=== PATIENT | male | born 1955 | race Caucasian/White ===

== ENCOUNTER 2018-11-10 18:52 | Emergency (ER) | payer OTHER ==
[2018-11-10] MEDS ORDERED: METHYLPREDNISOLONE 125 MG INJ ONE (19:28)
[2018-11-10] MEDS ORDERED: IBUPROFEN 400 MG TAB ONE (19:29)
[2018-11-10] MEDS ORDERED: LEVALBUTEROL 1.25 MG/3 ML NEB ONE ×2 (19:29→21:23)
[2018-11-10] MEDS ORDERED: IBUPROFEN 200 MG TAB PO ONE (19:30)
--- NOTE | 2018-11-10 19:32 | RAD REPORT ---
EXAM DESCRIPTION: RAD - Chest Pa And Lat (2 Views) - 11/10/2018 7:26 pm CLINICAL HISTORY: Cough;Dyspnea Chest pain. COMPARISON: No comparisonsNo comparisons TECHNIQUE: PA and lateral views of the chest were obtained. FINDINGS: The lungs are hyperexpanded compatible with COPD. Linear opacities in both lung bases like ly representing atelectasis. The heart is upper limit of normal in size. No fracture or aggressive mian ny process. IMPRESSION: Prominent COPD.
--- NOTE | 2018-11-10 19:47 | RAD REPORT ---
EXAM DESCRIPTION: US - Abdomen Exam Limited - 11/10/2018 7:40 pm CLINICAL HISTORY: RUQ abd pain COMPARISON: No comparisons FINDINGS: The gallbladder demonstrates no gallstones. No pericholecystic fluid or gallbladder wall t hickening. The common bile duct is normal measuring 3 mm. The liver demonstrates fatty liver. IMPRESSION: Negative gallbladder/ biliary tree findings. Fatty liver.
[2018-11-10 20:15] LABS: Absolute Lymphocytes (CBC) 1.1 K/uL (0.7-4.9); Absolute Monocytes 1.2 K/uL (0.1-1.3); Absolute Neutrophil 7.2 K/uL (1.8-8.0); Basophils % 1.1 % (0-1.3); Eosinophils % 2.9 % (0-4.4); Hematocrit 46.5 % (39.6-49.0); Lymphocytes % 11.3 % (15.3-44.8); MPV 8.5 fL (7.6-11.3); Monocytes % 12.4 % (3.3-12.3)
[2018-11-10 20:41] LABS: ALT/SGPT 37 U/L (12-78); AST/SGOT 25 U/L (15-37); Albumin 3.4 g/dL (3.4-5.0); Alkaline Phosphatase 81 U/L (45-117); BUN Blood Urea Nitrogen 12 mg/dL (7-18); Bicarbonate 26 mmol/L (21-32); Bilirubin Direct 0.1 mg/dL (0-0.2); Bilirubin Total 0.5 mg/dL (0.2-1.0); Glucose Level 109 mg/dL (74-106); Lipase 85 U/L (73-393); NT PRO-BNP 119 pg/mL (<125); Potassium 3.8 mmol/L (3.5-5.1); Protein, Total 8.2 g/dL (6.4-8.2); Sodium Level 137 mmol/L (136-145); Troponin (Emerg Dept Use Only) < 0.02 ng/mL (0.0-0.045)
[2018-11-10] MEDS ORDERED: IPRATROPIUM BROM 0.5MG/2.5ML ONE (21:22)
--- NOTE | 2018-11-10 21:53 | EDPHYS ---
Physician Documentation [facility] Name: Jorge Antonio Age: 63 yrs Sex: Male : 1955 Arrival Date: 11/10/2018 Time: 18:58 Bed 17 Private MD: None, None ED Physician Dante Small HPI: 11/10 19:11 This 63 yrs old Male presents to ER via Ambulatory with complaints of rn Shortness Of Breath. 19:11 The patient has shortness of breath at rest, with light activity. rn 19:12 Onset: The symptoms/episode began/occurred 2 day(s) ago. Duration: The symptoms are rn intermittent. The patient's shortness of breath is aggravated by exertion, light activity. Associated signs and symptoms: Pertinent positives: chest pain, non-productive cough, fever, Pertinent negatives: hemoptysis, loss of consciousness. Severity of symptoms: At their worst the symptoms were mild in the emergency department the symptoms are unchanged. The patient has experienced similar episodes in the past. Reports sob, non-productive cough, + fever and chills, began 2 days ago, similar to previous COPD episodes but today hurting to take deep breath and radiates to RUQ.. Historical: - Allergies: 19:05 No Known Allergies; sg - PMHx: 19:05 COPD; sg - Immunization history:: Adult Immunizations up to date. - Social history:: Smoking status: Patient/guardian denies using tobacco. - Ebola Screening: : Patient negative for fever greater than or equal to 101.5 degrees Fahrenheit, and additional compatible Ebola Virus Disease symptoms Patient denies exposure to infectious person Patient denies travel to an Ebola-affected area in the 21 days before illness onset No symptoms or risks identified at this time. - Family history:: not pertinent. - Hospitalizations: : No recent hospitalization is reported. ROS: 19:12 Constitutional: + fever and chills Eyes: Negative for injury, pain, redness, and government service executive, Neck: Negative for injury, pain, and swelling, Cardiovascular: + chest pain Respiratory: + sob and cough Abdomen/GI: negative for nausea/vomiting MS/Extremity: Negative for injury and deformity, Skin: Negative for injury, rash, and discoloration, Neuro: Negative for headache, weakness, numbness, tingling, and seizure. Exam: 19:12 Constitutional: This is a well developed, well nourished patient who is awake, alert, rn and in no acute distress. Head/Face: Normocephalic, atraumatic. Eyes: Pupils equal round and reactive to light, extra-ocular motions intact. Lids and lashes normal. Conjunctiva and sclera are non-icteric and not injected. Cornea within normal limits. Periorbital areas with no swelling, redness, or edema. ENT: MMM, no stridor Cardiovascular: Regular rate and rhythm. No pulse deficits. Respiratory: + diminished breath sounds right lower lung field, no wheezing noted, mild tachypnea Abdomen/GI: soft, non-tender Skin: Warm, dry with normal turgor. Normal color with no rashes, no lesions, and no evidence of cellulitis. MS/ Extremity: Pulses equal, no cyanosis. Neurovascular intact. Full, normal range of motion. Equal circumference. Neuro: Awake and alert, GCS 15, oriented to person, place, time, and situation. Cranial nerves II-XII grossly intact. Motor strength 5/5 in all extremities. Sensory grossly intact. Vital Signs: 19:03 BP 142 / 77; Pulse 92; Resp 21; Temp 100.0; Pulse Ox 94% on R/A; Weight 97.52 kg; Pain sg 0/10; 20:18 BP 149 / 70; Pulse 84; Resp 16 S; Pulse Ox 93% on 2 lpm NC; cc3 21:28 BP 141 / 84; Pulse 77; Resp 15 S; Pulse Ox 93% on 2 lpm NC; cc3 22:00 BP 153 / 62; Pulse 77; Resp 18 S; Pulse Ox 95% on R/A; cc3 20:18 89% on room air cc3 MDM: 19:02 Patient medically screened. rn 21:50 Differential diagnosis: Bronchitis Chronic Obstructive Pulmonary Disease pneumonia, rn Pneumothorax pulmonary edema. Data reviewed: vital signs, nurses notes, lab test result(s), radiologic studies, plain films, and as a result, I will. Counseling: I had a detailed discussion with the patient and/or guardian regarding: the historical points, exam findings, and any diagnostic results supporting the discharge/admit diagnosis, lab results, radiology results, the need for outpatient follow up, to return to the emergency department if symptoms worsen or persist or if there are any questions or concerns that arise at home. Response to treatment: the patient's symptoms have markedly improved after treatment, and as a result, I will discharge patient. Special discussion: I discussed with the patient/guardian in detail that at this point there is no indication for admission to the hospital. It is understood, however, that if the symptoms persist or worsen the patient needs to return immediately for re-evaluation. ED course: Pt feels much better, neg cxr, neg flu, will dc home as copd exacerbation. No risk factors for DVT, no leg swelling.. 11/10 19:09 Order name: Blood Culture Adult (2) 11/10 19:09 Order name: BMP; Complete Time: :00 11/10 19:09 Order name: CBC with Diff; Complete Time: :11/10 19:09 Order name: Hepatic Function; Complete Time: :11/10 19:09 Order name: Lipase; Complete Time: 21:11/10 19:09 Order name: NT PRO-BNP; Complete Time: 21:11/10 19:09 Order name: XRAY Chest Pa And Lat (2 Views); Complete Time: 19:48 11/10 19:09 Order name: Troponin (emerg Dept Use Only); Complete Time: 21:00 11/10 19:09 Order name: Flu; Complete Time: 21:00 11/10 19:12 Order name: US Abdomen Limited; Complete Time: 19:48 11/10 19:09 Order name: EKG; Complete Time: 19:10 11/10 19:09 Order name: Cardiac monitoring; Complete Time: 19:10 11/10 19:09 Order name: EKG - Nurse/Tech; Complete Time: 20:16 11/10 19:09 Order name: IV Saline Lock; Complete Time: 20:16 11/10 19:09 Order name: Labs collected and sent; Complete Time: 20:17 11/10 19:09 Order name: O2 Per Protocol; Complete Time: 19:10 11/10 19:09 Order name: O2 Sat Monitoring; Complete Time: 19:10 rn Administered Medications: 19:35 Drug: Xopenex (3) 1.25 mg Route: Inhalation; cc3 20:15 Follow up: Response: No adverse reaction cc3 19:45 Drug: SOLU-Medrol 125 mg Route: IVP; Site: left antecubital; cc3 20:15 Follow up: Response: No adverse reaction cc3 19:58 Not Given (Patient Refused): Motrin 600 mg PO once cc3 21:14 Drug: Xopenex 1.25 mg Route: Inhalation; cc3 22:19 Follow up: Response: Marked relief of symptoms cc3 21:14 Drug: AtroVENT Aerosol 0.5 mg Route: Inhalation; cc3 22:19 Follow up: Response: Marked relief of symptoms cc3 22:00 Drug: Zithromax 500 mg Route: PO; cc3 22:19 Follow up: Response: No adverse reaction cc3 Disposition: 11/10/18 21:52 Discharged to Home. Impression: Chronic obstructive pulmonary disease with (acute) exacerbation. - Condition is Stable. - Discharge Instructions: Chronic Obstructive Pulmonary Disease Exacerbation. - Prescriptions for Prednisone 20 mg Oral Tablet - take 3 tablet by ORAL route once daily for 5 days; 15 tablet. Zithromax Z- Kar 250 mg Oral Tablet - take 1 tablet by ORAL route as directed for 5 days Day 1 - take two (2) tablets one time. Day 2, 3, 4 , 5 take one (1) tablet once daily.; 6 tablet. Albuterol Sulfate 90 mcg/actuation - inhale 1-2 puff by INHALATION route every 4-6 hours; 1 Inhaler. - Medication Reconciliation Form, Thank You Letter, Antibiotic Education, Prescription Opioid Use form. - Follow up: Private Physician; When: 2 - 3 days; Reason: Recheck today's complaints, Re-evaluation by your physician. - Problem is new. - Symptoms have improved. Signatures: Dispatcher [employer] EDJosef Ballesteros RN RN sg Nieto, Roman, MD MD rn Cordel, Charlene cc3 Corrections: (The following items were deleted from the chart) 22:18 21:52 11/10/2018 21:52 Discharged to Home. Impression: Chronic obstructive pulmonary cc3 disease with (acute) exacerbation. Condition is Stable. Forms are Medication Reconciliation Form, Thank You Letter, Antibiotic Education, Prescription Opioid Use. Follow up: Private Physician; When: 2 - 3 days; Reason: Recheck today's complaints, Re-evaluation by your physician. Problem is new. Symptoms have improved. rn
--- NOTE | 2018-11-10 21:53 | ER ---
Nurse's Notes [facility] Name: Jorge Antonio Age: 63 yrs Sex: Male : 1955 Arrival Date: 11/10/2018 Time: 18:58 Bed 17 Private MD: None, None Diagnosis: Chronic obstructive pulmonary disease with (acute) exacerbation Presentation: 11/10 19:02 Presenting complaint: Patient states: Cough, Chest congestion, history of sg COPD/Bronchitis, pt reports chills but unsure if he has had any fever, pt states his ribs hurt from the productive cough he has had as well. Transition of care: patient was not received from another setting of care. Onset of symptoms was November 10, 2018. Risk Assessment: Do you want to hurt yourself or someone else? Patient reports no desire to harm self or others. Initial Sepsis Screen: Does the patient meet any 2 criteria? RR > 20 per min. Does the patient have a suspected source of infection? Yes: Productive cough/pneumonia. Care prior to arrival: None. 19:02 Method Of Arrival: Ambulatory sg 19:02 Acuity: [facility] 3 sg Triage Assessment: 19:08 Respiratory: Reports shortness of breath at rest on exertion Onset: The cc3 symptoms/episode began/occurred today, the patient has mild shortness of breath. 19:08 General: Appears in no apparent distress. comfortable, Behavior is calm, cooperative, cc3 appropriate for age. Historical: - Allergies: 19:05 No Known Allergies; sg - PMHx: 19:05 COPD; sg - Immunization history:: Adult Immunizations up to date. - Social history:: Smoking status: Patient/guardian denies using tobacco. - Ebola Screening: : Patient negative for fever greater than or equal to 101.5 degrees Fahrenheit, and additional compatible Ebola Virus Disease symptoms Patient denies exposure to infectious person Patient denies travel to an Ebola-affected area in the 21 days before illness onset No symptoms or risks identified at this time. - Family history:: not pertinent. - Hospitalizations: : No recent hospitalization is reported. Screenin:08 Abuse screen: Denies threats or abuse. Denies injuries from another. Nutritional cc3 screening: No deficits noted. Tuberculosis screening: No symptoms or risk factors identified. Fall Risk Ambulatory Aid- None/Bed Rest/Nurse Assist (0 pts). Gait- Normal/Bed Rest/Wheelchair (0 pts) Mental Status- Oriented to own ability (0 pts). Assessment: 19:08 General: Appears in no apparent distress. comfortable, Behavior is calm, cooperative, cc3 appropriate for age. Pain: Denies pain. Neuro: Level of Consciousness is awake, alert, obeys commands, Oriented to person, place, time, situation, Appropriate for age. Cardiovascular: Patient's skin is warm and dry. Rhythm is regular. Respiratory: Airway is patent Respiratory effort is even, unlabored, Respiratory pattern is regular, symmetrical. GI: Abdomen is round non-distended. : No signs and/or symptoms were reported regarding the genitourinary system. EENT: No signs and/or symptoms were reported regarding the EENT system. Derm: No signs and/or symptoms reported regarding the dermatologic system. Musculoskeletal: Circulation, motion, and sensation intact. Range of motion: intact in all extremities. 19:20 Respiratory: Breath sounds are diminished in right lower lung field. cc3 19:58 Reassessment: Patient refused Dr. Geovanny Sagastume informed. cc3 20:29 Reassessment: Patient appears in no apparent distress at this time. Patient and/or cc3 family updated on plan of care and expected duration. Pain level reassessed. Patient is alert, oriented x 3, equal unlabored respirations, skin warm/dry/pink. 21:27 Reassessment: Patient appears in no apparent distress at this time. Patient and/or cc3 family updated on plan of care and expected duration. Pain level reassessed. Patient is alert, oriented x 3, equal unlabored respirations, skin warm/dry/pink. 22:18 Reassessment: Patient appears in no apparent distress at this time. Patient and/or cc3 family updated on plan of care and expected duration. Pain level reassessed. Patient is alert, oriented x 3, equal unlabored respirations, skin warm/dry/pink. Dr. Small discharged home the patient. IV cannula removed and patient left ER vitally stable with his . Vital Signs: 19:03 BP 142 / 77; Pulse 92; Resp 21; Temp 100.0; Pulse Ox 94% on R/A; Weight 97.52 kg; Pain sg 0/10; 20:18 BP 149 / 70; Pulse 84; Resp 16 S; Pulse Ox 93% on 2 lpm NC; cc3 21:28 BP 141 / 84; Pulse 77; Resp 15 S; Pulse Ox 93% on 2 lpm NC; cc3 22:00 BP 153 / 62; Pulse 77; Resp 18 S; Pulse Ox 95% on R/A; cc3 20:18 89% on room air cc3 ED Course: 18:58 Patient arrived in ED. mr 18:59 None, None is Private Physician. mr 19:02 Dante Small MD is Attending Physician. rn 19:03 Triage completed. sg 19:04 Arm band placed on. sg 19:08 Audrey Vega is Primary Nurse. cc3 19:08 Patient has correct armband on for positive identification. Placed in gown. Bed in low cc3 position. Call light in reach. Side rails up X 1. voltage tester on. Pulse ox on. NIBP on. 19:26 XRAY Chest Pa And Lat (2 Views) In Process Unspecified. EDMS 19:40 US Abdomen Limited In Process Unspecified. EDMS 19:41 Ultrasound completed. Patient tolerated well. sg3 19:45 Inserted saline lock: 20 gauge in left antecubital area, using aseptic technique. Blood cc3 collected. 22:17 No provider procedures requiring assistance completed. IV discontinued, bleeding cc3 controlled, No redness/swelling at site. Pressure dressing applied. Administered Medications: 19:35 Drug: Xopenex (3) 1.25 mg Route: Inhalation; cc3 20:15 Follow up: Response: No adverse reaction cc3 19:45 Drug: SOLU-Medrol 125 mg Route: IVP; Site: left antecubital; cc3 20:15 Follow up: Response: No adverse reaction cc3 19:58 Not Given (Patient Refused): Motrin 600 mg PO once cc3 21:14 Drug: Xopenex 1.25 mg Route: Inhalation; cc3 22:19 Follow up: Response: Marked relief of symptoms cc3 21:14 Drug: AtroVENT Aerosol 0.5 mg Route: Inhalation; cc3 22:19 Follow up: Response: Marked relief of symptoms cc3 22:00 Drug: Zithromax 500 mg Route: PO; cc3 22:19 Follow up: Response: No adverse reaction cc3 Outcome: 21:52 Discharge ordered by . rn 22:17 Discharged to home ambulatory. cc3 22:17 Condition: good 22:17 Discharge instructions given to patient, family, Instructed on discharge instructions, follow up and referral plans. medication usage, Demonstrated understanding of instructions, follow-up care, medications, Prescriptions given X 3. 22:18 Patient left the ED. cc3 Signatures: Dispatcher [employer] EDMS Josef Campbell RN RN sg Rivera, Mary mr Nieto, Roman, MD MD rn Godinez, Sarah 3 Audrey Vega cc3
[2018-11-10] MEDS ORDERED: AZITHROMYCIN 250 MG TAB ONE (22:13)
--- NOTE | 2018-11-11 06:20 | EKG ---
Test Date: 2018-11-10 Test Time: 20:08:30 Assisted Living Assistant: MARCELL MEASUREMENT RESULTS: Intervals: Rate: 83 WV: 178 QRSD: 80 QT: 358 QTc: 420 [place]: P: 52 WV: 178 QRS: 40 T: 80 INTERPRETIVE STATEMENTS: Normal sinus rhythm T wave abnormality, consider anterior ischemia Abnormal ECG Compared to ECG 12/04/1997 16:36:00 T-wave abnormality now present Possible ischemia now present Sinus bradycardia no longer present Atrial premature complex(es) no longer present Electronically Signed On 11-11-18 06:19:33 [employer]IOR INSIGHT [employer]GER [employer] by Anant Campos
== END 2018-11-10 22:18 | disposition home or self-care (01) ==
LOC: ER 18:52
DX: J44.1 Chronic obstructive pulmonary disease with (acute) exacerbation (principal)
CPT/HCPCS: 36415; 71046; 76705; 80048; 80076; 83690; 83880; 84484; 85025; 87040; 87804; 93005; 96374; 99285; J2930

== ENCOUNTER 2019-12-16 15:47 | Emergency (ER) | payer OTHER ==
[2019-12-16] MEDS ORDERED: METHYLPREDNISOLONE 125 MG INJ ONE (16:32)
[2019-12-16] MEDS ORDERED: Magnesium Sulfate 1gm IVPB 1 GM/50 ML BAG IV ONE (16:45)
[2019-12-16] MEDS ORDERED: MAGNESIUM SULFATE 1 gm IVPB 1 GM/100 ML BAG IV ONE (16:46)
[2019-12-16 16:47] LABS: Absolute Lymphocytes (CBC) 1.8 K/uL (0.7-4.9); Hematocrit 47.9 % (39.6-49.0); Lymphocytes % 19.8 % (15.3-44.8); MPV 8.2 fL (7.6-11.3); RBC Red Blood Cell Count 5.35 M/uL (4.33-5.43)
[2019-12-16 16:53] LABS: Protime INR 1.03
--- NOTE | 2019-12-16 17:09 | RAD REPORT ---
EXAM DESCRIPTION: RAD - Chest Single View - 12/16/2019 4:30 pm CLINICAL HISTORY: shortness of breath Chest pain. COMPARISON: Chest Pa And Lat (2 Views) dated 11/10/2018 FINDINGS: Portable technique limits examination quality. The lungs are mildly emphysematous but grossly clear. The heart is normal in size. No displaced fract ures. IMPRESSION: Mild COPD.
[2019-12-16] MEDS ORDERED: LEVALBUTEROL 1.25 MG/3 ML NEB ONE (17:20)
[2019-12-16 17:24] LABS: ALT/SGPT 93 U/L (12-78); AST/SGOT 52 U/L (15-37); Albumin 3.7 g/dL (3.4-5.0); Alkaline Phosphatase 77 U/L (45-117); BUN Blood Urea Nitrogen 10 mg/dL (7-18); Bicarbonate 26 mmol/L (21-32); Bilirubin Direct < 0.1 mg/dL (0-0.2); Bilirubin Total 0.4 mg/dL (0.2-1.0); Glucose Level 120 mg/dL (74-106); Magnesium 2.3 mg/dL (1.8-2.4); NT PRO-BNP 312 pg/mL (<125); Potassium 4.4 mmol/L (3.5-5.1); Protein, Total 7.8 g/dL (6.4-8.2); Sodium Level 136 mmol/L (136-145)
[2019-12-16 17:43] LABS: Troponin (Emerg Dept Use Only) 1.07 ng/mL (0.0-0.045)
[2019-12-16] MEDS ORDERED: ENOXAPARIN 60 MG/0.6 ML SQ ONE (17:59)
[2019-12-16] MEDS ORDERED: ENOXAPARIN 30 MG/0.3 ML SQ ONE (17:59)
--- NOTE | 2019-12-16 18:06 | EDPHYS ---
Physician Documentation [facility] Name: Jorge Antonio Age: 64 yrs Sex: Male : 1955 Arrival Date: 12/16/2019 Time: 15:50 Bed 5 Private MD: ED Physician Gurwinder Moody HPI: 12/15 16:03 This 64 yrs old Male presents to ER via Wheelchair with complaints of m Shortness Of Breath. 16:03 The patient has shortness of breath at rest. Onset: The symptoms/episode began/occurred jmm this morning. Duration: The symptoms are continuous. The patient's shortness of breath has no apparent modifying factors. Associated signs and symptoms: Pertinent positives: non-productive cough, Pertinent negatives: chest pain. This is a 64 year old male with a history of COPD that presents to the ED with complaints of shortness of breath he attributes to worsening COPD. Patient states having similar episodes approximately every year. Denies chest pain. Patient also complains of pain to the right leg. Denies known injury. . Historical: - Allergies: 16:02 NSAIDS; jl7 16:02 Aspirin; jl7 - Home Meds: 16:02 Albuterol Inhl [Active]; jl7 - PMHx: 16:02 COPD; jl7 - Immunization history:: Adult Immunizations up to date. - Social history:: Smoking status: Patient denies any tobacco usage or history of. ROS: 16:03 Constitutional: Negative for fever, chills, and weight loss, Cardiovascular: Negative jmm for chest pain, palpitations, and edema. 16:03 Respiratory: Positive for shortness of breath. 16:03 Abdomen/GI: Negative for abdominal pain, nausea and vomiting. 16:03 MS/extremity: Positive for pain. 16:03 All other systems are negative. Exam: 16:03 Constitutional: This is a well developed, well nourished patient who is awake, alert, jmm and in no acute distress. Head/Face: atraumatic. Eyes: EOMI, no conjunctival erythema appreciated ENT: Moist Mucus Membranes Neck: Trachea midline, Supple Chest/axilla: Normal chest wall appearance and motion. 16:03 Abdomen/GI: Non distended, soft Back: Normal ROM Skin: General appearance color normal MS/ Extremity: Moves all extremities, no obvious deformities appreciated, no edema noted to the lower extremities Neuro: Awake and alert, normal gait Psych: Behavior is normal, Mood is normal, Patient is cooperative and pleasant 16:03 Cardiovascular: Rate: normal, Rhythm: regular, Pulses: no pulse deficits are appreciated. 16:03 Respiratory: the patient does not display signs of respiratory distress, Respirations: normal, Breath sounds: are clear throughout. Vital Signs: 15:59 BP 114 / 81; Pulse 93; Resp 19; Temp 97.6; Pulse Ox 98% ; Pain 0/10; jl7 16:36 BP 117 / 91; Pulse 92; Resp 22; Pulse Ox 95% ; sv 17:19 BP 115 / 85; Pulse 94; Resp 19 S; Pulse Ox 99% on R/A; ca1 17:42 BP 119 / 91; Pulse 93; Resp 17 S; Pulse Ox 94% on R/A; ca1 17:52 Weight 90.72 kg (R); Height 5 ft. 9 in. (175.26 cm) (R); ca1 18:44 Pulse Ox 87% on R/A; sv 18:46 BP 138 / 88; Pulse 97; Resp 20; Pulse Ox 95% on 2 lpm NC; sv 19:15 BP 132 / 95; Pulse 96; Resp 21; Temp 97.8; Pulse Ox 97% on 2 lpm NC; Pain 0/10; rr5 20:00 BP 131 / 92; Pulse 98; Resp 22; Pulse Ox 95% on 2 lpm NC; lw1 21:15 BP 138 / 83; Pulse 98; Resp 23; Pulse Ox 94% on 2 lpm NC; rr5 17:52 Body Mass Index 29.53 (90.72 kg, 175.26 cm) ca1 18:44 Pt placed on O2 \T\ 2L per NC. O2 sat up to 95% sv MDM: 16:03 Patient medically screened. [facility] 18:03 Data reviewed: vital signs, nurses notes. [facility] 20:59 ED course: I discussed the patient with Dr. Howard whom accepted transfer. [facility] 12/15 16:13 Order name: Basic Metabolic Panel; Complete Time: 17:45 [facility] 12/15 16:13 Order name: CBC with Diff; Complete Time: 16:57 [facility] 12/15 16:13 Order name: LFT's; Complete Time: 17:45 [facility] 12/15 16:13 Order name: Magnesium; Complete Time: 17:46 [facility] 12/15 16:13 Order name: NT PRO-BNP; Complete Time: 17:45 [facility] 12/15 16:13 Order name: PT-INR; Complete Time: 18:31 [facility] 12/15 16:13 Order name: Troponin (emerg Dept Use Only); Complete Time: 17:46 [facility] 12/15 16:13 Order name: XRAY Chest (1 view); Complete Time: 17:21 [facility] 12/15 17:46 Order name: Chest For PE Angio CT; Complete Time: 18:31 [facility] 12/15 18:17 Order name: US Extremity Venous W Compression Leno; Complete Time: 19:20 [facility] 12/15 18:20 Order name: PTT, Activated Partial Thromb; Complete Time: 18:31 [facility] 12/15 16:13 Order name: EKG; Complete Time: 16:14 [facility] 12/15 16:13 Order name: Cardiac monitoring; Complete Time: 16:22 [facility] 12/15 16:13 Order name: EKG - Nurse/Tech; Complete Time: 16:22 [facility] 12/15 16:13 Order name: IV Saline Lock; Complete Time: 16:22 [facility] 12/15 16:13 Order name: Labs collected and sent; Complete Time: 16:22 [facility] 12/15 16:13 Order name: O2 Per Protocol; Complete Time: 16:22 [facility] 12/15 16:13 Order name: O2 Sat Monitoring; Complete Time: 16:22 jmm Administered Medications: 16:32 Drug: SOLU-Medrol 125 mg Route: IVP; Site: right antecubital; ca1 17:42 Follow up: Response: No adverse reaction; Marked relief of symptoms ca1 16:45 Drug: Magnesium Sulfate 1 grams Route: IVPB; Infused Over: 1 hrs; Site: right ca1 antecubital; 17:42 Follow up: Response: No adverse reaction; IV Status: Completed infusion ca1 16:58 CANCELLED (other medication used): Albuterol 2.5 mg Inhalation every 20 minutes x3 jmm 17:01 Not Given (different route): Xopenex (3) 1.25 mg Inhalation once jmm 17:18 Not Given (Physician Discretion): Albuterol HFA Inhaler 2 puffs Inhalation once ca1 17:18 Drug: Xopenex (3) 1.25 mg Route: Inhalation; ca1 17:55 Drug: Lovenox 1 mg/kg Route: Sub-Q; Site: right lower abdomen; ca1 18:21 Follow up: Response: No adverse reaction ca1 18:31 Drug: HEParin 8000 units {Co-Signature: sv (Sophia Staton RN).} {Note: Computation ca1 per IV Heparin Dosing protocol is 7256 units. Provider ANTONIA Carolina VO to give max dose of 8000units. .} Route: IV; Rate: calculated rate; Site: right antecubital; 18:56 Follow up: Response: No adverse reaction; IV Status: Completed infusion ca1 Disposition: 12/16 05:54 Co-signature as Attending Physician, Gurwinder Moody MD. herberth Disposition: 12/16/19 18:05 Transfer ordered to [facility]. Diagnosis are Chronic obstructive pulmonary disease with (acute) exacerbation, Non-ST elevation (NSTEMI) myocardial infarction, Pulmonary embolism. - Reason for transfer: Higher level of care. - Accepting physician is [place]. - Condition is Stable. - Problem is new. - Symptoms have improved. Signatures: Dispatcher [employer] EDGurwinder Mathis MD MD cha Mickail, Joel, PA PA jmm Leal, Jahala, RN RN jl7 Jermain Davis RN RN rr5 Tamra Jovel RN RN ca1 Sophia jones Corrections: (The following items were deleted from the chart) 12/15 16:58 16:57 Albuterol 2.5 mg Inhalation every 20 minutes x3 ordered. yuli roldan 21:02 18:05 12/16/2019 18:05 [facility] Diagnosis jmm is Chronic obstructive pulmonary disease with (acute) exacerbation; Non-ST elevation (NSTEMI) myocardial infarction. Reason for transfer: Higher level of care. Accepting physician is [place]. Condition is Stable. Problem is new. Symptoms have improved. yuli 21:39 21:02 12/16/2019 18:05 Transfer ordered to [facility]. Diagnosis rr5 is Chronic obstructive pulmonary disease with (acute) exacerbation; Non-ST elevation (NSTEMI) myocardial infarction; Pulmonary embolism. Reason for transfer: Higher level of care. Accepting physician is [place]. Condition is Stable. Problem is new. Symptoms have improved. jmm
--- NOTE | 2019-12-16 18:06 | ER ---
Nurse's Notes [facility] Name: Jorge Antonio Age: 64 yrs Sex: Male : 1955 Arrival Date: 12/16/2019 Time: 15:50 Bed 5 Private MD: Diagnosis: Chronic obstructive pulmonary disease with (acute) exacerbation;Non-ST elevation (NSTEMI) myocardial infarction;Pulmonary embolism Presentation: 12/15 15:59 Chief complaint: Patient states: Shortness of breath since this morning, denies fever, jl7 reports "I have COPD and go through this every year. My allergies started getting to me this morning.". Coronavirus screen: Surgical mask placed on patient. Patient moved to private room, placed in contact and droplet isolation with eye protection until further assessment. Patient denies a cough. Patient reports shortness of breath or difficulty breathing. Patient denies measured and/or subjective temperature greater than 100.4F. Patient denies travel on a cruise ship or to a country the [facility] currently lists as an affected area. Patient denies contact with known and/or suspected case of COVID-19. Ebola Screen: No symptoms or risks identified at this time. Initial Sepsis Screen: Does the patient meet any 2 criteria? No. Patient's initial sepsis screen is negative. Does the patient have a suspected source of infection? No. Patient's initial sepsis screen is negative. Risk Assessment: Do you want to hurt yourself or someone else? Patient reports no desire to harm self or others. Onset of symptoms was December 16, 2019. 15:59 Method Of Arrival: Wheelchair [facility] 15:59 Acuity: SAMI 3 jl7 Triage Assessment: 16:02 General: Appears in no apparent distress. uncomfortable, Behavior is calm, cooperative. jl7 Pain: Denies pain. Respiratory: Reports shortness of breath at rest Airway is patent Respiratory effort is even, unlabored, Respiratory pattern is regular, symmetrical, Onset: The symptoms/episode began/occurred this morning, the patient has mild shortness of breath. Historical: - Allergies: 16:02 NSAIDS; jl7 16:02 Aspirin; jl7 - Home Meds: 16:02 Albuterol Inhl [Active]; jl7 - PMHx: 16:02 COPD; jl7 - Immunization history:: Adult Immunizations up to date. - Social history:: Smoking status: Patient denies any tobacco usage or history of. Screenin:05 Abuse screen: Denies threats or abuse. Denies injuries from another. Nutritional ca1 screening: No deficits noted. Tuberculosis screening: No symptoms or risk factors identified. Fall Risk IV access (20 points). Assessment: 16:32 General: Appears in no apparent distress. comfortable, Behavior is calm, cooperative, ca1 appropriate for age. Pain: Denies pain. Cardiovascular: Heart tones S1 S2 present Capillary refill < 3 seconds Patient's skin is warm and dry. Rhythm is sinus tachycardia. Respiratory: Reports shortness of breath on exertion cough that is non-productive, Airway is patent Respiratory effort is even, unlabored, Respiratory pattern is regular, symmetrical, Breath sounds are clear bilaterally. GI: Abdomen is round non-distended, Bowel sounds present X 4 quads. : No signs and/or symptoms were reported regarding the genitourinary system. EENT: No signs and/or symptoms were reported regarding the EENT system. Derm: Skin is intact, is healthy with good turgor, Skin is pink, warm \\T\\ dry. Musculoskeletal: Circulation, motion, and sensation intact. Capillary refill < 3 seconds. 17:19 Reassessment: Patient appears in no apparent distress at this time. Patient and/or ca1 family updated on plan of care and expected duration. Pain level reassessed. Patient is alert, oriented x 3, equal unlabored respirations, skin warm/dry/pink. 17:42 Reassessment: Patient appears in no apparent distress at this time. Patient and/or ca1 family updated on plan of care and expected duration. Pain level reassessed. Patient is alert, oriented x 3, equal unlabored respirations, skin warm/dry/pink. 17:58 Reassessment: Pt to CT via stretcher. ca1 18:19 Reassessment: Called lab to add PTT on labs. PT instructed on Complete Bed Rest. Sign ca1 put outside door. 18:46 Reassessment: US at the bedside. sv 18:46 Reassessment: Patient appears in no apparent distress at this time. Patient and/or ca1 family updated on plan of care and expected duration. Pain level reassessed. Patient is alert, oriented x 3, equal unlabored respirations, skin warm/dry/pink. US at bedside. 19:10 General: Appears in no apparent distress. comfortable, Behavior is calm, cooperative, rr5 appropriate for age, awaiting for other facility acceptance.. Pain: Denies pain. Neuro: Level of Consciousness is awake, alert, obeys commands, Oriented to person, place, time, situation, Appropriate for age. Cardiovascular: Capillary refill < 3 seconds Patient's skin is warm and dry. Respiratory: Airway is compromised Respiratory effort is even, unlabored, Respiratory pattern is regular, symmetrical. GI: Abdomen is round non-distended. : No signs and/or symptoms were reported regarding the genitourinary system. EENT: No signs and/or symptoms were reported regarding the EENT system. Derm: Skin is intact, is healthy with good turgor, Skin is pink, warm \\T\\ dry. Musculoskeletal: Circulation, motion, and sensation intact. Capillary refill < 3 seconds. 20:10 Reassessment: Patient appears in no apparent distress at this time. No changes from rr5 previously documented assessment. Patient is alert, oriented x 3, equal unlabored respirations, skin warm/dry/pink. awaiting for the [place] to call back. 21:15 Reassessment: Patient appears in no apparent distress at this time. Patient and/or rr5 family updated on plan of care and expected duration. Pain level reassessed. Patient is alert, oriented x 3, equal unlabored respirations, skin warm/dry/pink. Yvonne nurse from [place] [facility] accepted the case. 21:37 Reassessment: Patient appears in no apparent distress at this time. Patient is alert, rr5 oriented x 3, equal unlabored respirations, skin warm/dry/pink. report given to [facility] awake alert, breathing spontaneously, vitally stable. Patient denies pain at this time. Vital Signs: 15:59 BP 114 / 81; Pulse 93; Resp 19; Temp 97.6; Pulse Ox 98% ; Pain 0/10; jl7 16:36 BP 117 / 91; Pulse 92; Resp 22; Pulse Ox 95% ; sv 17:19 BP 115 / 85; Pulse 94; Resp 19 S; Pulse Ox 99% on R/A; ca1 17:42 BP 119 / 91; Pulse 93; Resp 17 S; Pulse Ox 94% on R/A; ca1 17:52 Weight 90.72 kg (R); Height 5 ft. 9 in. (175.26 cm) (R); ca1 18:44 Pulse Ox 87% on R/A; sv 18:46 BP 138 / 88; Pulse 97; Resp 20; Pulse Ox 95% on 2 lpm NC; sv 19:15 BP 132 / 95; Pulse 96; Resp 21; Temp 97.8; Pulse Ox 97% on 2 lpm NC; Pain 0/10; rr5 20:00 BP 131 / 92; Pulse 98; Resp 22; Pulse Ox 95% on 2 lpm NC; lw1 21:15 BP 138 / 83; Pulse 98; Resp 23; Pulse Ox 94% on 2 lpm NC; rr5 17:52 Body Mass Index 29.53 (90.72 kg, 175.26 cm) ca1 18:44 Pt placed on O2 \\T\\ 2L per NC. O2 sat up to 95% sv ED Course: 15:50 Patient arrived in ED. ag5 15:55 Dwight Carolina PA is PHCP. jmm 15:55 Gurwinder Moody MD is Attending Physician. jmm 16:01 Triage completed. jl7 16:02 Arm band placed on right wrist. jl7 16:04 Tamra Jovel, CAROLYN is Primary Nurse. ca1 16:05 Patient has correct armband on for positive identification. Placed in gown. Bed in low ca1 position. Call light in reach. Side rails up X2. nurse monitoring on. Pulse ox on. NIBP on. Warm blanket given. 16:22 Initial lab(s) drawn, by me, sent to lab. Inserted saline lock: 20 gauge in right ca1 antecubital area, using aseptic technique. Blood collected. 16:31 XRAY Chest (1 view) In Process Unspecified. EDMS 17:20 No provider procedures requiring assistance completed. ca1 17:54 attempted transfer to [facility], faxed chart to transfer center. bd 18:05 Chest For PE Angio CT In Process Unspecified. EDMS 18:10 Patient moved back from CT. sv 19:03 US Extremity Venous W Compression Leno In Process Unspecified. EDMS 19:20 tried calling the [place] transfer center no one answered. mw2 19:30 tried calling the main number to the [place] to speak to the granulator machine operator no body answered. mw2 20:08 received call from [place] spoke to Brittny Salazar she stated that they have yet to receive mw2 our fax. 20:13 faxed patient information to [phone]. mw2 20:40 [facility] spoke to Brittny Salazar to notify her I faxed patient information. she stated mw2 she got the fax and will notify the Doctor. 20:59 Received acceptance from Brittny Salazar for the transfer. mw2 21:19 Patient transferred, IV remains in place. intact, No redness/swelling at site. rr5 Administered Medications: 16:32 Drug: SOLU-Medrol 125 mg Route: IVP; Site: right antecubital; ca1 17:42 Follow up: Response: No adverse reaction; Marked relief of symptoms ca1 16:45 Drug: Magnesium Sulfate 1 grams Route: IVPB; Infused Over: 1 hrs; Site: right ca1 antecubital; 17:42 Follow up: Response: No adverse reaction; IV Status: Completed infusion ca1 16:58 CANCELLED (other medication used): Albuterol 2.5 mg Inhalation every 20 minutes x3 jmm 17:01 Not Given (different route): Xopenex (3) 1.25 mg Inhalation once jmm 17:18 Not Given (Physician Discretion): Albuterol HFA Inhaler 2 puffs Inhalation once ca1 17:18 Drug: Xopenex (3) 1.25 mg Route: Inhalation; ca1 17:55 Drug: Lovenox 1 mg/kg Route: Sub-Q; Site: right lower abdomen; ca1 18:21 Follow up: Response: No adverse reaction ca1 18:31 Drug: HEParin 8000 units {Co-Signature: karen (Sophia Staotn RN).} {Note: Computation ca1 per IV Heparin Dosing protocol is 7256 units. Provider ANTONIA Carolina VO to give max dose of 8000units. .} Route: IV; Rate: calculated rate; Site: right antecubital; 18:56 Follow up: Response: No adverse reaction; IV Status: Completed infusion ca1 Output: 19:15 Urine: 700ml (Voided); Total: 700ml. rr5 21:00 Urine: 500ml (Voided); Total: 1200ml. rr5 Outcome: 18:05 ER care complete, transfer ordered by jmuna 21:38 Transferred by ground EMS to [facility] Transfer form completed. rr5 21:38 Condition: stable 21:38 Instructed on the need for transfer. 21:39 Patient left the ED. rr5 Signatures: Dispatcher [employer] EDMS Anjali Izaguirre Stephanie RN RN sv Dwight Carolina PA PA jmm Leal, Jahala, RN RN jl7 Bhavin Donovan mw2 Jermain Davis RN RN rr5 Tamra Jovel RN RN ca1 Jessica, [place] ag5 Belinda Tiwari RN RN lw1 Sophia Staton RN sv Corrections: (The following items were deleted from the chart) 17:19 16:32 Respiratory: Reports shortness of breath on exertion cough that is ca1 non-productive, Airway is patent Respiratory effort is even, unlabored, Respiratory pattern is regular, symmetrical, Breath sounds are clear bilaterally. ca1 18:47 18:19 Reassessment: Called lab to add PTT on labs. ca1 ca1 20:53 20:00 received call from [place] spoke to [facility] she stated that they have yet to receive mw2 our fax mw2 21:01 20:08 received call from [place] spoke to [facility] she stated that they have yet to receive mw2 our fax mw2 21:01 20:40 called [place] spoke to [facility] to notify her I faxed patient information. she stated mw2 she got the fax and will notify the Doctor. mw2
[2019-12-16] MEDS ORDERED: HEPARIN 5000 UNIT/ML 1 ML VIAL ONE (18:25)
--- NOTE | 2019-12-16 18:27 | RAD REPORT ---
EXAM DESCRIPTION: CT - Chest For Pe Angio - 12/16/2019 6:05 pm CLINICAL HISTORY: Chest pain. shortness of breath, elevated troponin COMPARISON: <Comparisons> TECHNIQUE: CT angiogram of the pulmonary arteries was performed with MIP. All CT scans are performed using dose optimization technique as appropriate and may include automated exposure control or mA/KV adjustment according to patient size. FINDINGS: Large bilateral pulmonary emboli are present including the left main and right main pulmon ted arteries. Segmental and subsegmental branch involvement is seen bilaterally as well. Mild RV stra in pattern also seen. No acute aortic finding demonstrated. Prominent diffuse COPD. No significant pericardial or pleural fluid. No concerning bony finding. IMPRESSION: Extensive bilateral pulmonary thromboembolism is seen as detailed. Prominent COPD. The findings were discussed with Dr. Moody in the emergency room on 12/16/2019 at 6:23 p.m. by esdras bowling.
--- NOTE | 2019-12-16 19:13 | RAD REPORT ---
EXAM DESCRIPTION: US - Extrem Venous W Compress Leno - 12/16/2019 7:02 pm CLINICAL HISTORY: PE Bilateral leg edema and swelling. COMPARISON: No comparisons TECHNIQUE: Real-time sonographic interrogation of the left and right lower extremity deep venous sys tems was performed. FINDINGS: Echogenic thrombus is seen in the right femoral vein proximal and mid aspects. The remaind er of right lower extremity deep venous system shows no thrombus. No left-sided DVT. IMPRESSION: Positive for right-sided DVT.
[2019-12-16 21:56] VITALS: TEMP 97.8
[2019-12-16 21:59] VITALS: BP 138/83; O2SAT 94
--- NOTE | 2019-12-17 05:25 | EKG ---
Test Date: 2019-12-16 Test Time: 16:16:16 Soap Inspector: GUEVARA MEASUREMENT RESULTS: Intervals: Rate: 95 NM: 226 QRSD: 78 QT: 334 QTc: 419 [place]: P: 84 NM: 226 QRS: 92 T: 96 INTERPRETIVE STATEMENTS: Sinus rhythm with 1st degree AV block Rightward axis T wave abnormality, consider anterior ischemia Abnormal ECG Compared to ECG 11/10/2018 20:08:30 First degree AV block now present Right-axis deviation now present T-wave abnormality still present Possible ischemia still present Electronically Signed On 12-17-19 05:23:42 CDT by Dhiraj Solorzano
== END 2019-12-16 21:39 ==
LOC: ER 15:47
DX: J44.1 Chronic obstructive pulmonary disease with (acute) exacerbation (principal); I21.4 Non-ST elevation (NSTEMI) myocardial infarction; I26.99 Other pulmonary embolism without acute cor pulmonale; Z88.6 Allergy status to analgesic agent
CPT/HCPCS: 96365; 96367; 93005; 85025; 80048; 36415; 83735; 85610; 80076; 85730; 84484; 83880; 71275; 71045; 93970; 96375; 96372; 99285; Q9967; J1644 ×2; J1650 ×2; J3475; J2930

== ENCOUNTER 2020-04-15 17:13 | Emergency (ER) | payer OTHER ==
[2020-04-15] MEDS ORDERED: HYDROCODONE/APAP 5/325 MG TAB ONE (17:54)
[2020-04-15 18:08] LABS: Absolute Lymphocytes (CBC) 1.8 K/uL (0.7-4.9); Basophils % 1.1 % (0-1.3); Hematocrit 43.2 % (39.6-49.0); Lymphocytes % 23.1 % (15.3-44.8); MPV 8.1 fL (7.6-11.3); RBC Red Blood Cell Count 4.86 M/uL (4.33-5.43)
[2020-04-15 18:09] LABS: Protime INR 1.22
[2020-04-15 18:20] LABS: ALT/SGPT 39 U/L (12-78); AST/SGOT 18 U/L (15-37); Albumin 3.6 g/dL (3.4-5.0); Alkaline Phosphatase 71 U/L (45-117); BUN Blood Urea Nitrogen 8 mg/dL (7-18); Bicarbonate 21 mmol/L (21-32); Bilirubin Direct < 0.1 mg/dL (0-0.2); Bilirubin Total 0.3 mg/dL (0.2-1.0); Glucose Level 119 mg/dL (74-106); Magnesium 2.6 mg/dL (1.8-2.4); NT PRO-BNP 36 pg/mL (<125); Potassium 3.3 mmol/L (3.5-5.1); Sodium Level 139 mmol/L (136-145); Troponin (Emerg Dept Use Only) < 0.02 ng/mL (0.0-0.045)
--- NOTE | 2020-04-15 18:53 | RAD REPORT ---
EXAM DESCRIPTION: RAD - Chest Single View - 04/15/2020 6:14 pm CLINICAL HISTORY: COPD;SOB COMPARISON: CT chest December 15, portable chest December 15 TECHNIQUE: AP portable chest image was obtained 04/15/2020 6:14 pm . FINDINGS: Prominent fibro emphysematous lung changes are present in a pattern similar to comparison. No superimposed failure, infiltrate or mass. Emphysema changes are most pronounced in the right uppe r lobe. Heart and vasculature are normal. No measurable pleural effusion and no pneumothorax. No acut e bony abnormality seen. No acute aortic findings suspected. IMPRESSION: COPD similar to comparison imaging. No acute finding.
--- NOTE | 2020-04-15 18:57 | RAD REPORT ---
EXAM DESCRIPTION: CT - Head Brain Wo Cont - 04/15/2020 6:49 pm CLINICAL HISTORY: right sided discomfortheadache, right-sided weakness COMPARISON: No comparisons TECHNIQUE: Axial 5 mm thick images of the head were obtained without IV contrast. All CT scans are performed using dose optimization technique as appropriate and may include automated exposure control or mA/KV adjustment according to patient size. FINDINGS: No intracranial hemorrhage, mass, edema or shift of mid-line structures. No acute infarcti on changes seen. No cortical edema or sulcal effacement. Atrophy is mild. Patient has minimal chronic ischemic change. Ventricles are in proportion. Arterial and physiologic calcifications are present. Mastoid air cells and visualized portions of the paranasal sinuses are clear. No acute bony findings. IMPRESSION: Noncontrast CT study showing no acute or significant finding. Patient has minimal atrophy and chronic ischemic change.
--- NOTE | 2020-04-15 18:59 | RAD REPORT ---
EXAM DESCRIPTION: CT - Chest For Pe Angio - 04/15/2020 6:50 pm CLINICAL HISTORY: COPD;Cough;Pain COMPARISON: Chest For Pe Angio dated 12/16/2019; Chest Single View dated 04/15/2020 TECHNIQUE: Dynamically enhanced 2 mm thick images of the chest were obtained during administration o f approximately 150mL Isovue 370 IV contrast. Coronal and oblique MIP reconstruction images were gene rated and reviewed. Exam utilizes a protocol to evaluate the pulmonary arterial tree. All CT scans are performed using dose optimization technique as appropriate and may include automated exposure control or mA/KV adjustment according to patient size. FINDINGS: No pulmonary emboli are identified. Respiratory motion limits far peripheral branch assess ment in each lung base. There is no suspicion for pulmonary embolic disease. The aorta as imaged shows no acute or suspicious finding. No pericardial thickening or effusion. No mass or consolidation in the lung parenchyma. Patient has prominent emphysema changes in each uppe r lobe. Interstitial stranding in each posterior gutter is similar to comparison. This is accentuated due to the amount of respiratory motion. Chronicity of the interstitial disease could mask early jaylen ma or infiltrate. No pleural effusion or pleural thickening. No mediastinal or hilar suspicious masses. No chest wall masses or abnormal axillary lymphadenopathy. IMPRESSION: No pulmonary emboli identified. No mass or consolidation. Patient has prominent COPD in each upper lobe. Patient has baseline interstitial prominence at each lung base. This is not significantly different b ut extent of chronic disease could mask early edema or infiltrate.
--- NOTE | 2020-04-15 19:06 | ER ---
Nurse's Notes [facility] Name: Jorge Antonio Age: 64 yrs Sex: Male : 1955 Arrival Date: 04/15/2020 Time: 17:16 Bed 7 Private MD: Diagnosis: Chronic obstructive pulmonary disease, unspecified;Low back pain Presentation: 04/15 17:29 Chief complaint: Patient states: Pain on R hip to R knee. Hx of blood clot on same leg ca1 a few months ago. Coronavirus screen: Patient denies a cough. Patient denies shortness of breath or difficulty breathing. Patient denies measured and/or subjective temperature greater than 100.4F prior to today's visit. Patient denies travel on a cruise ship or to a country the [facility] currently lists as an affected area. Patient denies contact with known and/or suspected case of COVID-19. Proceed with normal triage. Ebola Screen: Patient negative for fever greater than or equal to 101.5 degrees Fahrenheit, and additional compatible Ebola Virus Disease symptoms Patient denies exposure to infectious person. Patient denies travel to an Ebola-affected area in the 21 days before illness onset. No symptoms or risks identified at this time. Initial Sepsis Screen: Does the patient meet any 2 criteria? No. Patient's initial sepsis screen is negative. Does the patient have a suspected source of infection? No. Patient's initial sepsis screen is negative. Risk Assessment: Do you want to hurt yourself or someone else? Patient reports no desire to harm self or others. Onset of symptoms was April 15, 2020. 17:29 Method Of Arrival: Wheelchair ca1 17:29 Acuity: SAMI 3 ca1 Historical: - Allergies: 17:31 Aspirin; ca1 17:31 NSAIDS; ca1 - PMHx: 17:31 COPD; DVT; ca1 17:36 PE; ca1 - Immunization history:: Adult Immunizations up to date. - Social history:: Smoking status: Patient denies any tobacco usage or history of. Screenin:45 Abuse screen: Denies threats or abuse. Denies injuries from another. Nutritional jl7 screening: No deficits noted. Tuberculosis screening: No symptoms or risk factors identified. Fall Risk IV access (20 points). Total Perez Fall Scale indicates No Risk (0-24 pts). Assessment: 17:30 General: Appears in no apparent distress. uncomfortable, Behavior is calm, cooperative, jl7 appropriate for age. Pain: Complains of pain in right leg and right clavicle Pain currently is 1 out of 10 on a pain scale. at worst was 10 out of 10 on a pain scale. Neuro: Level of Consciousness is awake, alert, obeys commands, Oriented to person, place, time, situation. Cardiovascular: Patient's skin is warm and dry. Respiratory: Airway is patent Respiratory effort is even, unlabored, Respiratory pattern is regular, symmetrical. GI: Abdomen is round non-distended. Derm: Skin is pink, warm \T\ dry. Musculoskeletal: Swelling absent. 18:30 Reassessment: Patient appears in no apparent distress at this time. Patient and/or jl7 family updated on plan of care and expected duration. Pain level reassessed. Patient is alert, oriented x 3, equal unlabored respirations, skin warm/dry/pink. Vital Signs: 17:29 BP 144 / 76; Pulse 78; Resp 17 S; Temp 98.7(TE); Pulse Ox 95% on R/A; Weight 90.72 kg ca1 (R); Height 5 ft. 9 in. (175.26 cm) (R); 17:29 Body Mass Index 29.53 (90.72 kg, 175.26 cm) ca1 ED Course: 17:16 Patient arrived in ED. as 17:24 Brandi Avery FNP-C is [facility]. snw 17:24 Charles Branu MD is Attending Physician. snw 17:26 Cynthia West, CAROLYN is Primary Nurse. jl7 17:31 Triage completed. ca1 17:31 Arm band placed on right wrist. ca1 17:45 Patient has correct armband on for positive identification. Bed in low position. Call [facility] light in reach. Side rails up X2. threat monitoring analyst on. Pulse ox on. NIBP on. Warm blanket given. 17:45 Initial lab(s) drawn, by me, sent to lab. Inserted saline lock: 20 gauge in right jl7 wrist, using aseptic technique. Blood collected. 18:15 XRAY Chest (1 view) In Process Unspecified. EDMS 18:49 CT Head Brain wo Cont In Process Unspecified. EDMS 18:50 CT Chest For PE Angio In Process Unspecified. EDMS 19:26 No provider procedures requiring assistance completed. IV discontinued, intact, jl7 bleeding controlled, No redness/swelling at site. Pressure dressing applied. Administered Medications: 17:55 Drug: [place] 5 mg-325 mg 1 tabs Route: PO; jl7 18:30 Follow up: Response: No adverse reaction; Pain is decreased jl7 Outcome: 19:05 Discharge ordered by MD. thorpe 19:26 Discharged to home ambulatory. jl7 19:26 Condition: good 19:26 Discharge instructions given to patient, Instructed on discharge instructions, follow up and referral plans. medication usage, Demonstrated understanding of instructions, follow-up care, medications, Prescriptions given X 2. 19:26 Patient left the ED. jl7 Signatures: Dispatcher [employer] EDMS Brandi Avery, MEDICAL PRACTITIONERS-C MEDICAL PRACTITIONERS-Alanna Mcbride Jahala, RN RN jl7 Tamra Jovel RN RN ca1
--- NOTE | 2020-04-15 19:06 | EDPHYS ---
Physician Documentation [facility] Name: Jorge Antonio Age: 64 yrs Sex: Male : 1955 Arrival Date: 04/15/2020 Time: 17:16 Bed 7 Private MD: ED Physician Charles Braun HPI: 04/15 18:30 This 64 yrs old Male presents to ER via Wheelchair with complaints of Back snw Pain, Leg Pain. 18:30 The symptoms are located in the right sided discomfort x 3-4 days. Onset: The snw symptoms/episode began/occurred gradually, and became persistent. The pain does not radiate. Associated signs and symptoms: Pertinent positives: none. The problem was sustained from unknown cause, pt states it feels just like when he had a blood clot befort. Severity of symptoms: At their worst the symptoms were moderate. The patient has experienced a previous episode, as noted, 2004[facility] Historical: - Allergies: 17:31 Aspirin; ca1 17:31 NSAIDS; ca1 - PMHx: 17:31 COPD; DVT; ca1 17:36 PE; ca1 - Immunization history:: Adult Immunizations up to date. - Social history:: Smoking status: Patient denies any tobacco usage or history of. ROS: 18:26 Eyes: Negative for injury, pain, redness, and discharge, ENT: Negative for injury, snw pain, and discharge, Neck: Negative for injury, pain, and swelling. 18:26 Abdomen/GI: Negative for abdominal pain, nausea, vomiting, diarrhea, and constipation, Back: Negative for injury and pain, : Negative for injury, bleeding, discharge, and swelling, Skin: Negative for injury, rash, and discoloration, Neuro: Negative for headache, weakness, numbness, tingling, and seizure, Psych: Negative for depression, anxiety, suicide ideation, homicidal ideation, and hallucinations. 18:26 Constitutional: Positive for discomfort on all of right side, from shoulder to toe. Pt states he feels just like the time he had "the blood clots". Pt states he had right DVT with bilateral PE. Iman filter placed. 2004. Pt stopped smoking. Is taking oral anticoagulation.. 18:26 Cardiovascular: Positive for chest pain, of the right clavicle, anterior aspect of right upper chest, diaphragm, right lateral posterior chest, right breast, right arm and right leg, Negative for edema, paroxysmal nocturnal dyspnea. 18:26 Respiratory: Positive for pt states he is always sob, worse with mask. Hx of COPD. 18:26 MS/extremity: Positive for tenderness, all of right side. Exam: 18:26 Constitutional: This is a well developed, well nourished patient who is awake, alert, snw and in no acute distress. Head/Face: Normocephalic, atraumatic. Eyes: Pupils equal round and reactive to light, extra-ocular motions intact. Lids and lashes normal. Conjunctiva and sclera are non-icteric and not injected. Cornea within normal limits. Periorbital areas with no swelling, redness, or edema. ENT: Nares patent. No nasal discharge, no septal abnormalities noted. Tympanic membranes are normal and external auditory canals are clear. Oropharynx with no redness, swelling, or masses, exudates, or evidence of obstruction, uvula midline. Mucous membranes moist. Neck: Trachea midline, no thyromegaly or masses palpated, and no cervical lymphadenopathy. Supple, full range of motion without nuchal rigidity, or vertebral point tenderness. No Meningismus. Chest/axilla: Normal chest wall appearance and motion. Nontender with no deformity. No lesions are appreciated. Cardiovascular: Regular rate and rhythm with a normal S1 and S2. No gallops, murmurs, or rubs. Normal PMI, no JVD. No pulse deficits. Respiratory: Lungs have equal breath sounds bilaterally, clear to auscultation and percussion. No rales, rhonchi or wheezes noted. No increased work of breathing, no retractions or nasal flaring. Abdomen/GI: Soft, non-tender, with normal bowel sounds. No distension or tympany. No guarding or rebound. No evidence of tenderness throughout. Back: No spinal tenderness. No costovertebral tenderness. Full range of motion. Skin: Warm, dry with normal turgor. Normal color with no rashes, no lesions, and no evidence of cellulitis. MS/ Extremity: Pulses equal, no cyanosis. Neurovascular intact. Full, normal range of motion. Neuro: Awake and alert, GCS 15, oriented to person, place, time, and situation. Cranial nerves II-XII grossly intact. Motor strength 5/5 in all extremities. Sensory grossly intact. Cerebellar exam normal. Normal gait. Psych: Awake, alert, with orientation to person, place and time. Behavior, mood, and affect are within normal limits. Vital Signs: 17:29 BP 144 / 76; Pulse 78; Resp 17 S; Temp 98.7(TE); Pulse Ox 95% on R/A; Weight 90.72 kg ca1 (R); Height 5 ft. 9 in. (175.26 cm) (R); 17:29 Body Mass Index 29.53 (90.72 kg, 175.26 cm) ca1 MDM: 17:24 Patient medically screened. snw 19:06 Data reviewed: vital signs, nurses notes. Data interpreted: Pulse oximetry: on room air snw is 95 %. Interpretation: acceptable. Counseling: I had a detailed discussion with the patient and/or guardian regarding: the historical points, exam findings, and any diagnostic results supporting the discharge/admit diagnosis, lab results, radiology results, the need for outpatient follow up, to return to the emergency department if symptoms worsen or persist or if there are any questions or concerns that arise at home. Special discussion: Based on the history and exam findings, there is no indication for further emergent testing or inpatient evaluation. I discussed with the patient/guardian the need to see the primary care provider for further evaluation of the symptoms. 04/15 17:37 Order name: Basic Metabolic Panel; Complete Time: 18:26 snw 04/15 17:37 Order name: CBC with Diff; Complete Time: 18:13 snw 04/15 17:37 Order name: LFT's; Complete Time: 18:26 snw 04/15 17:37 Order name: Magnesium; Complete Time: 18:26 snw 04/15 17:37 Order name: NT PRO-BNP; Complete Time: 18:26 snw 04/15 17:37 Order name: PT-INR; Complete Time: 18:13 snw 04/15 17:37 Order name: Troponin (emerg Dept Use Only); Complete Time: 18:26 snw 04/15 17:37 Order name: XRAY Chest (1 view); Complete Time: 18:58 snw 04/15 17:37 Order name: EKG; Complete Time: 17:37 snw 04/15 17:37 Order name: Cardiac monitoring; Complete Time: 17:40 snw 04/15 17:37 Order name: EKG - Nurse/Tech; Complete Time: 17:40 snw 04/15 17:37 Order name: CT Head Brain wo Cont; Complete Time: 18:59 snw 04/15 17:37 Order name: CT Chest For PE Angio; Complete Time: 19:02 snw 04/15 17:37 Order name: IV Saline Lock; Complete Time: 18:02 snw 04/15 17:37 Order name: Labs collected and sent; Complete Time: 18:02 snw 04/15 17:37 Order name: O2 Per Protocol; Complete Time: 17:40 snw 04/15 17:37 Order name: O2 Sat Monitoring; Complete Time: 17:40 snw Administered Medications: 17:55 Drug: [place] 5 mg-325 mg 1 tabs Route: PO; jl7 18:30 Follow up: Response: No adverse reaction; Pain is decreased jl7 Disposition: 04/16 05:46 Co-signature as Attending Physician, Charles Braun MD I agree with the assessment and kdr plan of care. Disposition: 04/15/20 19:05 Discharged to Home. Impression: Chronic obstructive pulmonary disease, unspecified, Low back pain. - Condition is Stable. - Discharge Instructions: Back Pain, Adult, Chronic Obstructive Pulmonary Disease, Hypertension, Musculoskeletal Pain, Back Injury Prevention, [id number], Heat Therapy. - Prescriptions for Prednisone 20 mg Oral Tablet - take 2 tablet by ORAL route once daily for 5 days; 10 tablet. orphenadrine citrate 100 mg Oral Tablet Sustained Release - take 1 tablet by ORAL route 2 times per day As needed; 20 tablet. - Medication Reconciliation Form, Thank You Letter, Antibiotic Education, Prescription Opioid Use form. - Follow up: Emergency Department; When: As needed; Reason: Worsening of condition. Follow up: Private Physician; When: 2 - 3 days; Reason: Recheck today's complaints, Continuance of care, Re-evaluation by your physician. Signatures: Dispatcher [employer] EDMS Charles Braun MD MD kdr Waters, Shelly, SALES AND LEASING AGENT-C SALES AND LEASING AGENT-Csnw Cynthia West, RN RN jl7 Tamra Jovel RN RN ca1 Corrections: (The following items were deleted from the chart) 04/15 19:26 19:05 04/15/2020 19:05 Discharged to Home. Impression: Chronic obstructive pulmonary jl7 disease, unspecified; Low back pain. Condition is Stable. Forms are Medication Reconciliation Form, Thank You Letter, Antibiotic Education, Prescription Opioid Use. Follow up: Emergency Department; When: As needed; Reason: Worsening of condition. Follow up: Private Physician; When: 2 - 3 days; Reason: Recheck today's complaints, Continuance of care, Re-evaluation by your physician. snw
== END 2020-04-15 19:26 | disposition home or self-care (01) ==
LOC: ER 17:13
DX: J44.9 Chronic obstructive pulmonary disease, unspecified (principal); Z88.6 Allergy status to analgesic agent; Z79.01 Long term (current) use of anticoagulants; Z86.718 Personal history of other venous thrombosis and embolism
CPT/HCPCS: 85025; 80048; 36415; 83735; 85610; 80076; 84484; 83880; 70450; 71275; 71045; Q9967; 93005

== ENCOUNTER 2020-04-20 17:57 | Emergency (ER) | payer OTHER ==
[2020-04-20] MEDS ORDERED: NA CHLORIDE 0.9% 1,000 ML ONE (19:16)
[2020-04-20 19:53] LABS: Absolute Lymphocytes (CBC) 3.6 K/uL (0.7-4.9); Basophils % 1.2 % (0-1.3); Hematocrit 42.1 % (39.6-49.0); Lymphocytes % 28.8 % (15.3-44.8); MPV 8.4 fL (7.6-11.3); Protime INR 1.13; RBC Red Blood Cell Count 4.75 M/uL (4.33-5.43)
[2020-04-20 20:13] LABS: ALT/SGPT 65 U/L (12-78); AST/SGOT 36 U/L (15-37); Albumin 3.3 g/dL (3.4-5.0); Alkaline Phosphatase 64 U/L (45-117); BUN Blood Urea Nitrogen 14 mg/dL (7-18); Bicarbonate 24 mmol/L (21-32); Bilirubin Direct < 0.1 mg/dL (0-0.2); Bilirubin Total 0.2 mg/dL (0.2-1.0); Glucose Level 142 mg/dL (74-106); Magnesium 2.4 mg/dL (1.8-2.4); NT PRO-BNP 78 pg/mL (<125); Potassium 3.2 mmol/L (3.5-5.1); Protein, Total 7.7 g/dL (6.4-8.2); Sodium Level 140 mmol/L (136-145); Troponin (Emerg Dept Use Only) < 0.02 ng/mL (0.0-0.045)
--- NOTE | 2020-04-20 20:21 | RAD REPORT ---
EXAM DESCRIPTION: Margaux Single View04/20/2020 8:13 pm CLINICAL HISTORY: Chest pain COMPARISON: March 2020 FINDINGS: Lungs are hyperaerated The lungs appear clear of acute infiltrate. The heart is normal size IMPRESSION: No acute abnormalities displayed
--- NOTE | 2020-04-20 20:22 | RAD REPORT ---
EXAM DESCRIPTION: RAD - Abdomen 1 View (KUB) - 04/20/2020 8:14 pm CLINICAL HISTORY: Abdomen pain. FINDINGS: The bowel gas pattern is unremarkable. Calcifications within the pelvis may represent phleboliths
[2020-04-20] MEDS ORDERED: POTASSIUM CL SA 10 MEQ TAB PO ONE (21:20)
--- NOTE | 2020-04-20 21:24 | ER ---
Nurse's Notes [facility] Name: Jorge Antonio Age: 64 yrs Sex: Male : 1955 Arrival Date: 04/20/2020 Time: 18:00 Bed 30 Private MD: Diagnosis: Postthrombotic syndrome Presentation: 04/20 18:19 Chief complaint: Patient states: R leg swelling x 1 week, reports pain with ambulation ca1 and discomfort with just sitting. Recent Hx of blood clots on R leg where a "filter" was put in. Pt is on blood thinner. Coronavirus screen: Client denies travel out of the [place] in the last 14 days. At this time, the client does not indicate any symptoms associated with coronavirus-19. Ebola Screen: Patient negative for fever greater than or equal to 101.5 degrees Fahrenheit, and additional compatible Ebola Virus Disease symptoms Patient denies exposure to infectious person. Patient denies travel to an Ebola-affected area in the 21 days before illness onset. No symptoms or risks identified at this time. Initial Sepsis Screen: Does the patient meet any 2 criteria? No. Patient's initial sepsis screen is negative. Does the patient have a suspected source of infection? No. Patient's initial sepsis screen is negative. Risk Assessment: Do you want to hurt yourself or someone else? Patient reports no desire to harm self or others. Onset of symptoms was April 20, 2020. 18:19 Method Of Arrival: Wheelchair ca1 18:19 Acuity: SAMI 4 ca1 Historical: - Allergies: 18:22 Aspirin; ca1 18:22 NSAIDS; ca1 18:23 "statins"; ca1 - Home Meds: 18:24 apixaban oral oral [Active]; ca1 - PMHx: 18:22 COPD; DVT; PE; ca1 18:23 High Cholesterol; ca1 - Immunization history:: Adult Immunizations up to date. - Social history:: Smoking status: Patient/guardian denies using tobacco, the patient reports quitting approximately 15 years ago. - Family history:: not pertinent. Screenin:18 Abuse screen: Denies threats or abuse. Denies injuries from another. Nutritional ks7 screening: No deficits noted. Tuberculosis screening: No symptoms or risk factors identified. Fall Risk None identified. Assessment: 19:18 Pain: Complains of pain in right leg Pain currently is 5 out of 10 on a pain scale. ks7 Quality of pain is described as Pain began 1 day ago. Is continuous. 19:23 General: Appears in no apparent distress. uncomfortable, Behavior is calm, cooperative, ks7 pt c/o pain to R leg, pain on palpation. pulses 2+ DP bilaterally. no other complaints.. Vital Signs: 18:19 BP 141 / 72; Pulse 72; Resp 15 S; Temp 98.4(TE); Pulse Ox 95% on R/A; Weight 86.18 kg ca1 (R); Height 5 ft. 9 in. (175.26 cm) (R); 19:15 BP 141 / 73; Pulse 68; Resp 18; Temp 98.4(O); Pulse Ox 97% on R/A; Pain 0/10; ks7 19:18 BP 141 / 73; Pulse 66; Resp 14; Pulse Ox 95% on R/A; Pain 5/10; ks7 20:00 BP 120 / 74; Pulse 62; Resp 18; Pulse Ox 97% on 2 lpm NC; Pain 0/10; ks7 20:30 BP 121 / 74; Pulse 59; Resp 18; Pulse Ox 97% on 2 lpm NC; Pain 0/10; ks7 21:00 BP 127 / 78; Pulse 61; Resp 18; Temp 98.3(O); Pulse Ox 97% on 2 lpm NC; Pain 0/10; ks7 21:30 BP 123 / 65; Pulse 68; Resp 18; Temp 98.3(O); Pulse Ox 97% on 2 lpm NC; Pain 0/10; ks7 18:19 Body Mass Index 28.06 (86.18 kg, 175.26 cm) ca1 21:00 pt states he wears 02 at night. asked for 02 while in ED ks7 ED Course: 18:00 Patient arrived in ED. ag5 18:21 Triage completed. ca1 18:22 Arm band placed on right wrist. ca1 18:32 Gurwinder Moody MD is Attending Physician. herberth 19:00 Nancy Pepper, CAROLYN is Primary Nurse. ks7 19:14 Juice Miller PA is PHCP. jr8 19:18 Resting quietly. ks7 19:18 Patient has correct armband on for positive identification. Bed in low position. Call ks7 light in reach. Side rails up X2. 19:18 No provider procedures requiring assistance completed. Inserted saline lock: 20 gauge ks7 in right forearm, using aseptic technique. Blood collected. 19:30 Basic Metabolic Panel Sent. ks7 19:30 CBC with Diff Sent. ks7 19:30 LFT's Sent. ks7 19:30 Magnesium Sent. ks7 19:30 NT PRO-BNP Sent. ks7 19:30 PT-INR Sent. ks7 19:30 Troponin (emerg Dept Use Only) Sent. ks7 20:13 XRAY Chest (1 view) In Process Unspecified. EDMS 20:13 Abdomen 1 View (KUB) XRAY In Process Unspecified. EDMS 21:30 IV discontinued, intact, bleeding controlled, No redness/swelling at site. Pressure ks7 dressing applied. 21:31 Extrem Venous W Compress Leno In Process Unspecified. EDMS 21:32 US Extremity Venous W Compression Leno In Process Unspecified. EDMS Administered Medications: Discontinued: NS 0.9% 1000 ml IV at 125 ml/hr continuous 19:17 Drug: NS 0.9% 1000 ml Route: IV; Rate: 125 ml/hr; Site: right forearm; ks7 21:30 Drug: Potassium Chloride 40 mEq Route: PO; ks7 Outcome: 21:24 Discharge ordered by . malena 21:30 Discharged to home ambulatory. ks7 21:30 Condition: good 21:30 Discharge instructions given to patient. 22:01 Patient left the ED. ks7 Signatures: Dispatcher [employer] Gurwinder Gomes MD MD cha Roszak, Josh, PA PA jr8 Tamra Jovel RN RN Trenton Aceves Kathleen, RN RN ks7
--- NOTE | 2020-04-20 21:25 | EDPHYS ---
Physician Documentation [facility] Name: Jorge Antonio Age: 64 yrs Sex: Male : 1955 Arrival Date: 04/20/2020 Time: 18:00 Bed 30 Private MD: Gurwinder Melton HPI: 04/20 19:01 This 64 yrs old Male presents to ER via Wheelchair with complaints of Leg herberth Swelling. 19:01 The patient presents with decreased range of motion, pain, swelling. The complaints herberth affect the lateral aspect of right thigh, lateral aspect of right calf, right hamstring, right calf, medial aspect of right thigh, medial aspect of right calf, right quadriceps and right parish. Context: resulted from a chronic condition. Onset: The symptoms/episode began/occurred 5 day(s) ago. Modifying factors: The symptoms are alleviated by elevating leg, the symptoms are aggravated by movement, bending knee. Associated signs and symptoms: The patient has no apparent associated signs or symptoms. Treatment prior to arrival includes: elevation of the extremity, eliquis 5 mg po qday. Severity of symptoms: At their worst the symptoms were. The patient has experienced similar episodes in the past, currently has a [place] filter. Historical: - Allergies: 18:22 Aspirin; ca1 18:22 NSAIDS; ca1 18:23 "statins"; ca1 - Home Meds: 18:24 apixaban oral oral [Active]; ca1 - PMHx: 18:22 COPD; DVT; PE; ca1 18:23 High Cholesterol; ca1 - Immunization history:: Adult Immunizations up to date. - Social history:: Smoking status: Patient/guardian denies using tobacco, the patient reports quitting approximately 15 years ago. - Family history:: not pertinent. ROS: 19:01 Constitutional: Negative for fever, chills, and weight loss, Eyes: Negative for injury, herberth pain, redness, and discharge, ENT: Negative for injury, pain, and discharge, Neck: Negative for injury, pain, and swelling, Cardiovascular: Negative for chest pain, palpitations, and edema, Respiratory: Negative for shortness of breath, cough, wheezing, and pleuritic chest pain, Back: Negative for injury and pain, : Negative for injury, bleeding, discharge, and swelling. 19:01 MS/extremity: Positive for decreased range of motion, pain, swelling, of the right leg. Exam: 19:01 Constitutional: This is a well developed, well nourished patient who is awake, alert, herberth and in no acute distress. Head/Face: Normocephalic, atraumatic. Eyes: Pupils equal round and reactive to light, extra-ocular motions intact. Lids and lashes normal. Conjunctiva and sclera are non-icteric and not injected. Cornea within normal limits. Periorbital areas with no swelling, redness, or edema. ENT: Nares patent. No nasal discharge, no septal abnormalities noted. Tympanic membranes are normal and external auditory canals are clear. Oropharynx with no redness, swelling, or masses, exudates, or evidence of obstruction, uvula midline. Mucous membranes moist. Neck: Trachea midline, no thyromegaly or masses palpated, and no cervical lymphadenopathy. Supple, full range of motion without nuchal rigidity, or vertebral point tenderness. No Meningismus. Chest/axilla: Normal chest wall appearance and motion. Nontender with no deformity. No lesions are appreciated. Cardiovascular: Regular rate and rhythm with a normal S1 and S2. No gallops, murmurs, or rubs. Normal PMI, no JVD. No pulse deficits. Respiratory: Lungs have equal breath sounds bilaterally, clear to auscultation and percussion. No rales, rhonchi or wheezes noted. No increased work of breathing, no retractions or nasal flaring. Abdomen/GI: Soft, non-tender, with normal bowel sounds. No distension or tympany. No guarding or rebound. No evidence of tenderness throughout. Back: No spinal tenderness. No costovertebral tenderness. Full range of motion. Male : Normal genitalia with no discharge or lesions. Skin: Warm, dry with normal turgor. Normal color with no rashes, no lesions, and no evidence of cellulitis. Neuro: Awake and alert, GCS 15, oriented to person, place, time, and situation. Cranial nerves II-XII grossly intact. Motor strength 5/5 in all extremities. Sensory grossly intact. Cerebellar exam normal. Normal gait. Psych: Awake, alert, with orientation to person, place and time. Behavior, mood, and affect are within normal limits. 19:01 Musculoskeletal/extremity: Extremities: grossly normal except: decreased ROM, deformity, ecchymosis, ROM: full active range of motion, full passive range of motion, Circulation is intact in all extremities. Sensation intact. Compartment Syndrome exam of affected extremity: is normal. DVT Exam: swelling, that is mild, that is moderate, of the right leg. Vital Signs: 18:19 BP 141 / 72; Pulse 72; Resp 15 S; Temp 98.4(TE); Pulse Ox 95% on R/A; Weight 86.18 kg ca1 (R); Height 5 ft. 9 in. (175.26 cm) (R); 19:15 BP 141 / 73; Pulse 68; Resp 18; Temp 98.4(O); Pulse Ox 97% on R/A; Pain 0/10; ks7 19:18 BP 141 / 73; Pulse 66; Resp 14; Pulse Ox 95% on R/A; Pain 5/10; ks7 20:00 BP 120 / 74; Pulse 62; Resp 18; Pulse Ox 97% on 2 lpm NC; Pain 0/10; ks7 20:30 BP 121 / 74; Pulse 59; Resp 18; Pulse Ox 97% on 2 lpm NC; Pain 0/10; ks7 21:00 BP 127 / 78; Pulse 61; Resp 18; Temp 98.3(O); Pulse Ox 97% on 2 lpm NC; Pain 0/10; ks7 21:30 BP 123 / 65; Pulse 68; Resp 18; Temp 98.3(O); Pulse Ox 97% on 2 lpm NC; Pain 0/10; ks7 18:19 Body Mass Index 28.06 (86.18 kg, 175.26 cm) ca1 21:00 pt states he wears 02 at night. asked for 02 while in ED ks7 MDM: 18:32 Patient medically screened. herberth 19:05 Data reviewed: vital signs, nurses notes, lab test result(s), EKG, radiologic studies, herberth doppler, plain films. Data interpreted: hospital monitor: not applicable for this patient encounter. rate is 72 beats/min, rhythm is normal sinus rhythm. Test interpretation: by ED physician or midlevel provider: ECG, plain radiologic studies. Counseling: I had a detailed discussion with the patient and/or guardian regarding: the historical points, exam findings, and any diagnostic results supporting the discharge/admit diagnosis, lab results, radiology results. 20:21 Data interpreted: Pulse oximetry: on room air is 95 %. Interpretation: normal. jr8 21:21 ED course: No DVT on exam. Post thrombotic edema likely. Will d/c home . jr8 04/20 18:34 Order name: Basic Metabolic Panel; Complete Time: 20:20 [facility] 04/20 18:34 Order name: CBC with Diff; Complete Time: 20:20 [facility] 04/20 18:34 Order name: LFT's; Complete Time: 20:20 [facility] 04/20 18:34 Order name: Magnesium; Complete Time: 20:20 [facility] 04/20 18:34 Order name: NT PRO-BNP; Complete Time: 20:20 [facility] 04/20 18:34 Order name: PT-INR; Complete Time: 20:20 [facility] 04/20 18:34 Order name: Troponin (emerg Dept Use Only); Complete Time: 20:20 [facility] 04/20 18:34 Order name: XRAY Chest (1 view); Complete Time: 20:26 [facility] 04/20 19:07 Order name: Extrem Venous W Compress Leno EDMS 04/20 19:13 Order name: Abdomen 1 View (KUB) XRAY; Complete Time: 20:26 [facility] 04/20 21:15 Order name: Urine Dipstick--Ancillary (enter results) ar5 04/20 18:34 Order name: EKG; Complete Time: 19:10 [facility] 04/20 18:34 Order name: Cardiac monitoring; Complete Time: 19:01 [facility] 04/20 18:34 Order name: EKG - Nurse/Tech; Complete Time: 21:07 [facility] 04/20 18:34 Order name: IV Saline Lock; Complete Time: 19:18 [facility] 04/20 18:34 Order name: Labs collected and sent; Complete Time: 21:07 [facility] 04/20 18:34 Order name: O2 Per Protocol; Complete Time: 19:01 [facility] 04/20 18:34 Order name: O2 Sat Monitoring; Complete Time: 19:01 [facility] 04/20 18:34 Order name: Urine Dipstick-Ancillary (obtain specimen); Complete Time: 19:30 [facility] Administered Medications: Discontinued: NS 0.9% 1000 ml IV at 125 ml/hr continuous 19:17 Drug: NS 0.9% 1000 ml Route: IV; Rate: 125 ml/hr; Site: right forearm; ks7 21:30 Drug: Potassium Chloride 40 mEq Route: PO; ks7 Disposition: 04/21 08:46 Co-signature as Attending Physician, Gurwinder Moody MD I agree with the assessment and herberth plan of care. Disposition: 04/20/20 21:24 Discharged to Home. Impression: Postthrombotic syndrome. - Condition is Stable. - Discharge Instructions: Deep Vein Thrombosis. - Medication Reconciliation Form, Thank You Letter, Antibiotic Education, Prescription Opioid Use form. - Follow up: Private Physician; When: 2 - 3 days; Reason: Recheck today's complaints, Continuance of care, Re-evaluation by your physician. - Problem is new. - Symptoms have improved. Signatures: Dispatcher [employer] [facility] Gurwinder Moody MD MD cha Roszak, Josh, PA PA jr8 Tamra Jovel RN Nancy Barker RN RN ks7 Corrections: (The following items were deleted from the chart) 04/20 19:16 19:08 Chest Single View ordered. [facility] 22:01 21:24 04/20/2020 21:24 Discharged to Home. Impression: Postthrombotic syndrome. ks7 Condition is Stable. Forms are Medication Reconciliation Form, Thank You Letter, Antibiotic Education, Prescription Opioid Use. Follow up: Private Physician; When: 2 - 3 days; Reason: Recheck today's complaints, Continuance of care, Re-evaluation by your physician. Problem is new. Symptoms have improved. jr8
[2020-04-20 21:54] LABS: Urine Blood NEGATIVE (NEG); Urine Glucose NEGATIVE (NEG); Urine Protein NEGATIVE (NEG); Urine Specific Gravity 1.015 (1.005-1.030)
[2020-04-20 22:14] VITALS: O2SAT 97
[2020-04-20 22:17] VITALS: TEMP 98.3
[2020-04-20 22:19] VITALS: BP 123/65
--- NOTE | 2020-04-21 08:23 | RAD REPORT ---
EXAM DESCRIPTION: US - Extrem Venous W Compress Leno - 04/20/2020 9:31 pm CLINICAL HISTORY: leg swelling Bilateral leg edema and swelling. COMPARISON: Extrem Venous W Compress Leno dated 12/16/2019 TECHNIQUE: Real-time sonographic interrogation of the left and right lower extremity deep venous sys tems was performed. FINDINGS: Normal compressibility, flow augmentation, phasic flow and spontaneous flow is identified in both the left and right lower extremity deep venous systems. IMPRESSION: No sonographic evidence of left or right lower extremity deep venous thrombosis.
--- NOTE | 2020-04-21 11:01 | EKG ---
Test Date: 2020-04-20 Test Time: 20:41:24 Honing Machine Operator Production: JACK MEASUREMENT RESULTS: Intervals: Rate: 54 WY: 220 QRSD: 92 QT: 432 QTc: 409 [place]: P: 53 WY: 220 QRS: 32 T: 80 INTERPRETIVE STATEMENTS: Sinus bradycardia with 1st degree AV block Nonspecific T wave abnormality Abnormal ECG Compared to ECG 04/15/2020 17:43:25 First degree AV block now present T-wave abnormality now present Sinus rhythm no longer present Myocardial infarct finding no longer present ST (T wave) deviation no longer present Possible ischemia no longer present Electronically Signed On 04-21-20 11:00:58 CDT by Dhiraj Solorzano
== END 2020-04-20 22:01 | disposition home or self-care (01) ==
LOC: ER 17:57
DX: I87.001 Postthrombotic syndrome without complications of right lower extremity (principal); E78.00 Pure hypercholesterolemia, unspecified; Z88.6 Allergy status to analgesic agent; Z88.8 Allergy status to other drugs, medicaments and biological substances; Z86.718 Personal history of other venous thrombosis and embolism
CPT/HCPCS: 93005; 85025; 80048; 36415; 83735; 85610; 80076; 81003; 84484; 83880; 74018; 71045; 93970; 99284; J7030

== ENCOUNTER → 2023-09-15 | Emergency (ER) | payer OTHER ==
--- NOTE | 2023-09-15 13:35 | RAD REPORT ---
EXAM DESCRIPTION: US - Extremity Venous Uni Ltd - 09/15/2023 1:06 pm CLINICAL HISTORY: Leg pain, swelling COMPARISON: None. TECHNIQUE: Real-time sonographic evaluation of the right lower extremity deep venous system was perf ormed. FINDINGS: Partially compressible proximal to mid superficial femoral vein, on noncompressible distal superficial femoral, through popliteal absent flow on color duplex imaging. Hypoechoic thrombus thro ughout the segments. IMPRESSION: Evidence of extensive DVT in the right lower extremity as above. Preliminary findings were communicated to the ER by the curtain stitcher at the time of scanning. I agree with the curtain stitcher's notes.
[2023-09-15 13:58] LABS: Absolute Lymphocytes (CBC) 1.7 K/uL (0.7-4.9); Hematocrit 44.3 % (39.6-49.0); Lymphocytes % 20.9 % (15.3-44.8); MCV 89.8 fL (80-100); MPV 7.5 fL (7.6-11.3); Platelets 205 thou/uL (152-406); RBC Red Blood Cell Count 4.93 M/uL (4.33-5.43)
[2023-09-15 14:01] LABS: Protime INR 1.26
[2023-09-15 14:12] LABS: Albumin 3.4 g/dL (3.4-5.0); Bilirubin Total 0.7 mg/dL (0.2-1.0); Potassium 3.6 mEq/L (3.5-5.1); Protein, Total 7.5 g/dL (6.4-8.2)
--- NOTE | 2023-09-15 14:32 | EDPHYS ---
Physician Documentation [facility] Name: Jorge Antonio Age: 68 yrs Sex: Male : 1955 Arrival Date: 09/15/2023 Time: 12:21 Bed 18 Private MD: ED Physician Don Melton HPI: 09/15 12:33 This 68 yrs old Male presents to ER via Ambulatory with complaints of Leg ec2 Pain. 12:33 Patient arrives today for evaluation of right leg pain. Reports history of previous DVT ec2 and states this feels similar. States he has noticed some swelling to the right lower extremity. Patient reports no falls or injuries or recent trauma. Denies any fevers or chills.. Historical: - Allergies: 12:32 NSAIDS (Non-Steroidal Anti-Inflamma; hb 12:32 Aspirin; hb 12:32 Itnkmar-YTY-PuH Reductase Inhibitors; hb - Home Meds: 12:32 apixaban Oral [Active]; Albuterol Inhl [Active]; hb - PMHx: 12:32 COPD; DVT; High Cholesterol; PE; hb - Immunization history:: Adult Immunizations up to date. - Social history:: Smoking status: Patient/guardian denies using tobacco, the patient reports quitting approximately 18 years ago. ROS: 12:33 Constitutional: as per hpi ec2 Exam: 12:33 Constitutional: GEN: NAD Head: atraumatic Eyes: EOMI Ears: External ears are ec2 normal. CV: regular rate LUNGS: no respiratory distress ABD: non-distended SKIN: Right lower extremity with 1+ lower extremity edema when compared to the left. MSK: no evidence of trauma NEURO: moves all extremities equally Vital Signs: 12:30 BP 129 / 106; Pulse 74; Resp 18; Temp 99.4(TE); Pulse Ox 95% on R/A; Weight 93.44 kg; hb Height 5 ft. 9 in. ; Pain 6/10; 14:30 BP 131 / 75; Pulse 80; Resp 16; Pulse Ox 95% on R/A; db 12:30 Body Mass Index 30.42 (93.44 kg, 175.26 cm) hb 12:30 Pain Scale: Adult hb MDM: 12:33 Data reviewed: vital signs. ED course: Patient arrives today due to concern for right ec2 lower extremity swelling and pain. Examination remarkable for well-appearing nontoxic individual who has skin findings as noted above. Will obtain lab work as well as ultrasound to evaluate for DVT. Currently considering DVT, lymphedema, clinically does not appear like cellulitis.. 12:39 Patient medically screened. ec2 13:56 ED course: Ultrasound shows extensive DVT of the right lower extremity. . ec2 14:25 ED course: Metabolic profile shows appropriate renal function and electrolytes.. ec2 14:29 ED course: Extremity DVT. Further discussion with patient he did recently have a DVT, ec2 supposed to be on Eliquis, however stopped taking this medication due to concern for side effects. I instructed him that we could potentially move to the hospital and monitor for adverse reactions given the extent of the DVT however the patient declined and states that he will resume his blood thinner at home. Will discharge home, return precautions given. States he did not need a refill of his prescription for Eliquis.. 09/15 14:01 Order name: Protime (+INR); Complete Time: 14:05 EDMS 09/15 14:01 Order name: PTT, Activated Partial Thromb; Complete Time: 14:05 EDMS 09/15 14:06 Order name: CBC with Automated Diff; Complete Time: 14:06 EDMS 09/15 14:12 Order name: Comprehensive Metabolic Panel; Complete Time: 14:25 EDMS 09/15 13:36 Order name: US; Complete Time: 13:55 EDMS Administered Medications: No medications were administered Disposition Summary: 09/15/23 14:31 Discharge Ordered Notes: Location: Home ec2 Condition: Stable ec2 Diagnosis - Acute embolism and thrombosis of unspecified deep veins of unspecified lower ec2 extremity Followup: ec2 - With: Private Physician - When: - Reason: Recheck today's complaints Discharge Instructions: - Discharge Summary Sheet ec2 - Deep Vein Thrombosis ec2 Forms: - Medication Reconciliation Form ec2 - Thank You Letter ec2 - Antibiotic Education ec2 - Prescription Opioid Use ec2 - Patient Portal Instructions ec2 - Leadership Thank You Letter ec2 Signatures: Dispatcher [employer] Phyllis Liao RN RN hb Corral, Edwin, MD MD ec2 Corrections: (The following items were deleted from the chart) 12:33 12:32 Allergies: NSAIDS; hb hb
--- NOTE | 2023-09-15 14:32 | ER ---
Nurse's Notes [facility] Name: Jorge Antonio Age: 68 yrs Sex: Male : 1955 Arrival Date: 09/15/2023 Time: 12:21 Bed 18 Private MD: Diagnosis: Acute embolism and thrombosis of unspecified deep veins of unspecified lower extremity Presentation: 09/15 12:30 Chief complaint: RLE pain, swelling, and redness x 1 week. Hx of DVT. Recently stopped hb Eliquis due to GI bleed. Coronavirus screen: At this time, the client does not indicate any symptoms associated with coronavirus-19. Ebola Screen: No symptoms or risks identified at this time. Initial Sepsis Screen: Does the patient meet any 2 criteria? No. Patient's initial sepsis screen is negative. Does the patient have a suspected source of infection? No. Patient's initial sepsis screen is negative. Risk Assessment: Do you want to hurt yourself or someone else? Patient reports no desire to harm self or others. Onset of symptoms was September 08, 2023. 12:30 Method Of Arrival: Ambulatory hb 12:30 Acuity: SAMI 3 hb Historical: - Allergies: 12:32 NSAIDS (Non-Steroidal Anti-Inflamma; hb 12:32 Aspirin; hb 12:32 Pblhwnz-IQZ-ItD Reductase Inhibitors; hb - Home Meds: 12:32 apixaban Oral [Active]; Albuterol Inhl [Active]; hb - PMHx: 12:32 COPD; DVT; High Cholesterol; PE; hb - Immunization history:: Adult Immunizations up to date. - Social history:: Smoking status: Patient/guardian denies using tobacco, the patient reports quitting approximately 18 years ago. Screenin:32 [facility] ED Fall Risk Assessment (Adult) History of falling in the last 3 months, db including since admission No falls in past 3 months (0 pts) Confusion or Disorientation No (0 pts) Score/Fall Risk Level 0 - 2 = Low Risk Oriented to surroundings, Maintained a safe environment. Abuse screen: Denies threats or abuse. Denies injuries from another. Nutritional screening: No deficits noted. Tuberculosis screening: No symptoms or risk factors identified. Assessment: 13:00 Reassessment: Patient appears in no apparent distress at this time. Patient and/or db family updated on plan of care and expected duration. Pain level reassessed. Patient is alert, oriented x 3, equal unlabored respirations, skin warm/dry/pink. General: Appears in no apparent distress. comfortable, Behavior is calm, cooperative. Pain: Complains of pain in right leg. Neuro: Level of Consciousness is awake, alert, obeys commands, Oriented to person, place, time, situation. 13:00 Reassessment: Patient appears in no apparent distress at this time. Patient and/or db family updated on plan of care and expected duration. Pain level reassessed. Patient is alert, oriented x 3, equal unlabored respirations, skin warm/dry/pink. 14:47 Reassessment: Patient appears in no apparent distress at this time. Patient and/or db family updated on plan of care and expected duration. Pain level reassessed. Patient is alert, oriented x 3, equal unlabored respirations, skin warm/dry/pink. Vital Signs: 12:30 BP 129 / 106; Pulse 74; Resp 18; Temp 99.4(TE); Pulse Ox 95% on R/A; Weight 93.44 kg; hb Height 5 ft. 9 in. ; Pain 6/10; 14:30 BP 131 / 75; Pulse 80; Resp 16; Pulse Ox 95% on R/A; db 12:30 Body Mass Index 30.42 (93.44 kg, 175.26 cm) hb 12:30 Pain Scale: Adult hb ED Course: 12:25 Patient arrived in ED. rg4 12:25 Don Melton MD is Attending Physician. ec2 12:32 Triage completed. hb 12:33 Arm band placed on. hb 13:00 Patient has correct armband on for positive identification. Bed in low position. Call db light in reach. Side rails up X 1. Pulse ox on. NIBP on. Warm blanket given. Pillow given. 13:00 No provider procedures requiring assistance completed. db 13:15 Inserted saline lock: 22 gauge in left forearm, using aseptic technique. db 13:23 Kiera Fowler, RN is Primary Nurse. db 14:47 Provided Education on: DISCHARGE. db 14:47 IV discontinued, intact, bleeding controlled, No redness/swelling at site. db 19:31 Extremity Venous Uni Ltd US In Process Unspecified. EDMS Administered Medications: No medications were administered Medication: 13:00 VIS not applicable for this client. db Outcome: 14:31 Discharge ordered by . ec2 14:47 Discharged to home ambulatory, db 14:47 Condition: stable 14:47 Discharge instructions given to patient, family, Instructed on discharge instructions, follow up and referral plans. 14:54 Patient left the ED. db Signatures: Dispatcher [employer] Phyllis Liao RN RN hb Garcia, Rubi rg4 Kiera Fowler RN RN db Corral, Edwin, MD MD ec2 Corrections: (The following items were deleted from the chart) 12:33 12:32 Allergies: NSAIDS; hb hb
[2023-09-15 16:10] VITALS: TEMP 99.4; O2SAT 95
[2023-09-15 16:18] VITALS: BP 131/75
== END ==
LOC: ER 12:21
DX: I82.401 Acute embolism and thrombosis of unspecified deep veins of right lower extremity (principal); Z86.718 Personal history of other venous thrombosis and embolism; Z79.01 Long term (current) use of anticoagulants; Z88.6 Allergy status to analgesic agent; Z88.8 Allergy status to other drugs, medicaments and biological substances
CPT/HCPCS: 36415; 80053; 85025; 85610; 85730; 93971; 99283

== ENCOUNTER 2025-07-07 15:59 | Emergency (ER) | payer OTHER ==
[2025-07-07 18:16] LABS: Absolute Lymphocytes (CBC) 1.0 K/uL (0.7-4.9); Hematocrit 46.1 % (39.6-49.0); Hemoglobin 15.4 g/dL (13.6-17.9); MCH 30.9 pg (27.0-35.0); MCHC 33.4 g/dL (32.0-36.0); MCV 92.5 fL (80-100); MPV 7.1 fL (7.6-11.3); Nucleated RBC Absolute Count 0.0 (0-0); Nucleated Red Blood Cells % 0.0 % (0-0); RBC Red Blood Cell Count 4.98 M/uL (4.33-5.43); White Blood Count 8.10 thou/uL (4.3-10.9)
[2025-07-07 18:22] LABS: PT Prothrombin Time 13.9 SECONDS (10-13.0); Protime INR 1.24
[2025-07-07 18:37] LABS: ALT/SGPT 47 U/L (16-61); AST/SGOT 27 U/L (15-37); Albumin 3.8 g/dL (3.4-5.0); Albumin/Globulin Ratio 1.0 (1.1-1.8); Alkaline Phosphatase 59 U/L (45-117); Anion Gap 9.9 mEq/L (5.0-15.0); BUN Blood Urea Nitrogen 8 mg/dL (7-18); Globulin 3.9 g/dL (2.3-3.5); Glucose Level 103 mg/dL (74-106); Magnesium 2.2 mg/dL (1.6-2.4); NT PRO-BNP 85 pg/mL (<125); Potassium 3.9 mEq/L (3.5-5.1); Troponin High Sensitivity 6.9 pg/mL (<58.9)
[2025-07-07 18:38] LABS: Bilirubin Indirect, Calculated 0.3 mg/dL (0.2-0.8)
--- NOTE | 2025-07-07 19:10 | RAD REPORT ---
EXAM: Chest Single View HISTORY: 70 years Male DYSPNEA COMPARISON: 04/20/20 FINDINGS: LUNGS/PLEURA: The lungs are clear. No pleural effusions or pneumothorax. No pulmonary edema. CARDIAC/MEDIASTINUM: The cardiac silhouette is within normal limits. UPPER ABDOMEN: No significant abnormality. BONES: No acute abnormality. LINES/TUBES/OTHER: N/A IMPRESSION: No evidence of acute cardiopulmonary disease.
--- NOTE | 2025-07-07 19:18 | RAD REPORT ---
EXAMINATION: CTA CHEST PE CLINICAL INDICATION: Male, 70 years old. h/o DVT;Chest pain TECHNIQUE: This examination was performed according to an angiographic protocol with 3D post-processi ng. This involves 3D reconstructions, MIPs, volume rendered images and/or shaded surface rendering. One or more of the following dose reduction techniques were used: Automated exposure control, adjustm ent of the mA and/or kV according to patient size, and/or iterative reconstruction. Unless otherwise specified, incidental findings do not require dedicated imaging follow-up. [id number]. COMPARISON: 04/15/2020 FINDINGS: LOWER NECK: Visualized thyroid gland and soft tissues are normal. MEDIASTINUM AND LYMPH NODES: No mediastinal mass or fluid collection. Normal size mediastinal, hilar, and axillary lymph nodes. Mild distal esophageal thickening. THORACIC AORTA: No thoracic aortic aneurysm. PULMONARY ARTERIES: Enlarged main pulmonary arteries could indicate pulmonary artery hypertension. No pulmonary emboli identified. HEART: Normal heart size. No coronary calcifications.No significant pericardial effusion. LUNGS AND AIRWAYS: Emphysema. No suspicious and/or stable pulmonary nodules. PLEURA: No pleural effusions. No pneumothorax. OSSEOUS STRUCTURES AND CHEST WALL: No fracture or suspicious osseous lesions. UPPER ABDOMEN: No acute abnormalities. Hepatic steatosis. IMPRESSION: Negative for pulmonary embolism. No other acute process identified in the chest.
--- NOTE | 2025-07-07 19:49 | RAD REPORT ---
Extremity Venous Uni Ltd CLINICAL INDICATION: Male, 70 years old.PAIN RIGHT TECHNIQUE: Complete duplex sonography of the lower extremity veins was performed of the affected limb . The examination included compression for vein patency, color Doppler imaging and flow augmentation in response to distal compression of the distal external iliac, common femoral, femoral, popliteal, peroneal, tibial and great saphenous veins. [id number]. COMPARISON: 09/15/2023 FINDINGS: Duplex sonography imaging demonstrates all deep veins examined to be fully compressible with spontane ous, phasic and augmented flow in the affected limb. IMPRESSION: No evidence of deep venous thrombosis in the right lower extremity.
--- NOTE | 2025-07-07 22:44 | EDPHYS ---
Physician Documentation [facility] Name: Jorge Antonio Age: 70 yrs Sex: Male : 1955 Arrival Date: 07/07/2025 Time: 15:59 Bed 13 Private MD: ED Physician Dom Bañuelos HPI: 07/07 18:43 This 70 yrs old Male presents to ER via Ambulatory with complaints of fatigue, right sp3 calf pain, chest pain. 18:43 70-year-old male with history of COPD, PE, DVT on Eliquis, hyperlipidemia, hypertension sp3 presents to the ED for chief complaint right calf pain which is now resolved and nonspecific left-sided chest pain worse when he breathes since this morning. That has also mostly resolved. Patient denies any other symptoms including fever, headache, neck pain, back pain abdominal pain, vomiting, diarrhea, syncope, near syncope, prolonged immobilization, recent travel, missed doses of his Eliquis, or any other signs or symptoms on ROS at this time.. Historical: - Allergies: 16:26 Aspirin; dd2 16:26 NSAIDS (Non-Steroidal Anti-Inflamma; dd2 16:26 Hirnsxl-Fqf-Wpt Reductase Inhibitors; dd2 - PMHx: 16:26 COPD; DVT; High Cholesterol; PE; Hypertensive disorder; dd2 - PSHx: 16:26 HERNIA REPAIR; dd2 - Immunization history:: Adult Immunizations not up to date. - Infectious Disease History:: Denies. - Social history:: Smoking status: Patient/guardian denies using tobacco, but has a distant history of tobacco abuse. ROS: 18:45 Constitutional: Negative for fever, chills, and weight loss, Eyes: Negative for injury, sp3 pain, redness, and discharge, ENT: Negative for injury, pain, and discharge, Neck: Negative for injury, pain, and swelling, Respiratory: Negative for shortness of breath, cough, wheezing, and pleuritic chest pain, Abdomen/GI: Negative for abdominal pain, nausea, vomiting, diarrhea, and constipation, Back: Negative for injury and pain, MS/Extremity: Negative for injury and deformity, Skin: Negative for injury, rash, and discoloration, Neuro: Negative for headache, weakness, numbness, tingling, and seizure, Allergy/Immunology: Negative for hives, rash, and allergies, Endocrine: Negative for neck swelling, polydipsia, polyuria, polyphagia, and marked weight changes, Hematologic/Lymphatic: Negative for swollen nodes, abnormal bleeding, and unusual bruising, 18:45 All other systems are negative, Exam: 18:45 Constitutional: This is a well developed, well nourished patient who is awake, alert, sp3 and in no acute distress. Head/Face: Normocephalic, atraumatic. Eyes: Pupils equal round and reactive to light, extra-ocular motions intact. Lids and lashes normal. Conjunctiva and sclera are non-icteric and not injected. Cornea within normal limits. Periorbital areas with no swelling, redness, or edema. Neck: Trachea midline, no thyromegaly or masses palpated, and no cervical lymphadenopathy. Supple, full range of motion without nuchal rigidity, or vertebral point tenderness. No Meningismus. Chest/axilla: Normal chest wall appearance and motion. Nontender with no deformity. No lesions are appreciated. Cardiovascular: Regular rate and rhythm with a normal S1 and S2. No gallops, murmurs, or rubs. Normal PMI, no JVD. No pulse deficits. Respiratory: Lungs have equal breath sounds bilaterally, clear to auscultation and percussion. No rales, rhonchi or wheezes noted. No increased work of breathing, no retractions or nasal flaring. Abdomen/GI: Soft, non-tender, with normal bowel sounds. No distension or tympany. No guarding or rebound. No evidence of tenderness throughout. Back: No spinal tenderness. No costovertebral tenderness. Full range of motion. Skin: Warm, dry with normal turgor. Normal color with no rashes, no lesions, and no evidence of cellulitis. MS/ Extremity: Pulses equal, no cyanosis. Neurovascular intact. Full, normal range of motion. Neuro: Awake and alert, GCS 15, oriented to person, place, time, and situation. Cranial nerves II-XII grossly intact. Motor strength 5/5 in all extremities. Sensory grossly intact. Cerebellar exam normal. Normal gait. Psych: Awake, alert, with orientation to person, place and time. Behavior, mood, and affect are within normal limits. 18:45 ECG was reviewed by the Attending Physician. EKG demonstrates normal sinus rhythm at 74 bpm with a first-degree AV block with CT interval 218 otherwise normal intervals, normal axis, normal QRS, nonspecific diffuse ST/T changes without evidence of acute ischemia. Vital Signs: 16:26 BP 151 / 71; Pulse 78; Resp 16; Temp 98.2; Pulse Ox 95% on R/A; Weight 94.8 kg; Pain dd2 3/10; 17:39 BP 164 / 69; Pulse 76; Resp 20; Temp 98.3(O); Pulse Ox 96% on R/A; ar8 18:30 BP 161 / 67; Pulse 80; Resp 19; Pulse Ox 95% on R/A; ar8 19:17 BP 159 / 83; Pulse 79; Resp 19; Pulse Ox 96% on R/A; Pain 1/10; tb4 20:42 BP 160 / 83; Pulse 77; Resp 19; Pulse Ox 97% on R/A; tb4 21:40 BP 150 / 78; Pulse 81; Resp 15; Pulse Ox 99% on R/A; Pain 0/10; tb4 22:32 BP 157 / 69; Pulse 72; Resp 18; Pulse Ox 97% on R/A; tb4 23:17 BP 146 / 81; Pulse 77; Resp 19; Pulse Ox 100% on R/A; Pain 0/10; tb4 16:26 Pain Scale: Adult dd2 19:17 Pain Scale: Adult tb4 21:40 Pain Scale: Adult tb4 23:17 Pain Scale: Adult tb4 MDM: 16:34 Medical Screening Exam initiated sp3 18:46 Data reviewed: vital signs, nurses notes, lab test result(s), EKG, radiologic studies. sp3 ED course: 70-year-old male with history of PE and DVT on Eliquis now presents with right calf pain and chest pain which are both resolved however he presents for evaluation. Differential diagnosis includes muscle skeletal pain, recurrent DVT or PE, and to a lesser degree ACS or other abnormality. Will obtain CT PE protocol, ultrasound of the right lower extremity, general labs (which are normal) and probable discharge home if workup negative. Will sign patient out to nighttime physician for final evaluation and disposition.. 18:51 Transition of care: After a detail discussion of the patient's case, care is sp3 transferred to Dom Bañuelos MD. 22:41 ED course: COMPARISON: 09/15/2023 FINDINGS: Duplex sonography imaging demonstrates all sp4 deep veins examined to be fully compressible with spontaneous, phasic and augmented flow in the affected limb. IMPRESSION: No evidence of deep venous thrombosis in the right lower extremity. . ED course: COMPARISON: 04/15/2020 FINDINGS: LOWER NECK: Visualized thyroid gland and soft tissues are normal. MEDIASTINUM AND LYMPH NODES: No mediastinal mass or fluid collection. Normal size mediastinal, hilar, and axillary lymph nodes. Mild distal esophageal thickening. THORACIC AORTA: No thoracic aortic aneurysm. PULMONARY ARTERIES: Enlarged main pulmonary arteries could indicate pulmonary artery hypertension. No pulmonary emboli identified. HEART: Normal heart size. No coronary calcifications.No significant pericardial effusion. LUNGS AND AIRWAYS: Emphysema. No suspicious and/or stable pulmonary nodules. PLEURA: No pleural effusions. No pneumothorax. OSSEOUS STRUCTURES AND CHEST WALL: No fracture or suspicious osseous lesions. UPPER ABDOMEN: No acute abnormalities. Hepatic steatosis. IMPRESSION: Negative for pulmonary embolism. No other acute process identified in the chest. . ED course: COMPARISON: 04/20/20 FINDINGS: LUNGS/PLEURA: The lungs are clear. No pleural effusions or pneumothorax. No pulmonary edema. CARDIAC/MEDIASTINUM: The cardiac silhouette is within normal limits. UPPER ABDOMEN: No significant abnormality. BONES: No acute abnormality. LINES/TUBES/OTHER: N/A IMPRESSION: No evidence of acute cardiopulmonary disease.. 22:44 Differential diagnosis: acute pericarditis, anxiety, esophagitis, gastritis, stable sp4 angina. HEART Score: History: Slightly Suspicious (0), ECG: Normal (0), Age: > or = 65 years (2), Risk Factors: > or = 3 Risk factors for atherosclerotic disease (2), Troponin: < or = 1 x Normal Limit (0), Total Score = 4. 22:46 ED course: On repeat examination patient reports that he has a sore throat and sp4 discomfort. On exam patient has posterior pharyngeal erythema without tonsillar enlargement and without exudates. Exam consistent with acute viral pharyngitis. Will recommend Tylenol as needed. Otherwise CT negative for pulmonary embolus. Patient stable for discharge home at this time.. 07/07 17:43 Order name: Basic Metabolic Panel; Complete Time: 18:42 sp3 07/07 17:43 Order name: CBC with Diff; Complete Time: 18:24 sp3 07/07 17:43 Order name: LFT's; Complete Time: 18:42 sp3 07/07 17:43 Order name: Magnesium; Complete Time: 18:42 sp3 07/07 17:43 Order name: NT PRO-BNP; Complete Time: 18:42 sp3 07/07 17:43 Order name: PT-INR; Complete Time: 18:24 sp3 07/07 17:43 Order name: Troponin HS; Complete Time: 18:42 sp3 07/07 17:43 Order name: XRAY Chest (1 view); Complete Time: 22:30 sp3 07/07 18:29 Order name: CT Chest For PE Angio; Complete Time: 22:30 sp3 07/07 18:29 Order name: US Extremity Venous Unilateral Ltd; Complete Time: 22:30 sp3 07/07 17:43 Order name: Cardiac monitoring; Complete Time: 18:08 3 07/07 17:43 Order name: EKG - Nurse/Tech; Complete Time: 18:08 sp3 07/07 17:43 Order name: IV Saline Lock; Complete Time: 18:08 sp3 07/07 17:43 Order name: Labs collected and sent; Complete Time: 18:08 3 07/07 17:43 Order name: O2 Per Protocol; Complete Time: 18:08 sp3 07/07 17:43 Order name: O2 Sat Monitoring; Complete Time: 18:08 sp3 EC:00 Rate is 74 beats/min. Rhythm is regular, Sinus Rhythm. QRS [place] is Normal. CT interval sp4 is prolonged. QRS interval is normal. QT interval is normal. No Q waves. T waves are Normal. No ST changes noted. Clinical impression: No evidence of ischemia. Interpreted by me. Reviewed by me. Administered Medications: No medications were administered Disposition: 22:45 Chart complete. sp4 Disposition Summary: 07/07/25 22:43 Discharge Ordered Problem: new sp4 Symptoms: have improved sp4 Condition: Stable sp4 Diagnosis - Acute dyspnea on exertion, acute right leg pain, Acute viral pharyngitis, sp4 Followup: sp4 - With: Private Physician - When: 7 - 10 days - Reason: Recheck today's complaints Discharge Instructions: - Discharge Summary Sheet sp4 - Pharyngitis, [id number] sp4 - Viral Illness, Adult sp4 Forms: - Patient Portal Instructions sp4 Signatures: Dispatcher [employer] Alivia Mtz MD MD sp3 Dom Bañuelos MD MD sp4 SONY WHEELER, CAROLYN RN dd2 Louis Velez RN RN ar8 Corrections: (The following items were deleted from the chart) 17:43 17:43 BASIC METABOLIC PANEL+C.LAB.BRZ ordered. EDMS EDMS 17:43 17:43 CBC+H.LAB.BRZ ordered. EDMS EDMS 17:43 17:43 HEPATIC FUNCTION+C.LAB.BRZ ordered. EDMS EDMS 17:43 17:43 MAGNESIUM+C.LAB.BRZ ordered. EDMS EDMS 17:43 17:43 PROBNP+C.LAB.BRZ ordered. EDMS EDMS 17:43 17:43 PROTIME (+INR)+COAG.LAB.BRZ ordered. EDMS EDMS 17:43 17:43 Troponin High Sensitivity+C.LAB.BRZ ordered. EDMS EDMS 17:44 17:43 Chest Single View+RAD.RAD.BRZ ordered. EDMS EDMS 18:29 18:29 Chest For PE Angio+CT.RAD.BRZ ordered. EDMS EDMS 18:29 18:29 Lower Extremity Artery Uni Ltd+US.RAD.BRZ ordered. EDMS EDMS 18:30 18:30 Extremity Venous Uni Ltd+US.RAD.BRZ ordered. EDMS EDMS 18:51 18:46 ED course: 70-year-old male with history of PE and DVT on Eliquis now presents sp3 with right calf pain and chest pain which are both resolved however he presents for evaluation. Differential diagnosis includes muscle skeletal pain, recurrent DVT or PE, and to a lesser degree ACS or other abnormality. Will obtain CT PE protocol, ultrasound of the right lower extremity, general labs (which are normal) and probable discharge home if workup negative. Will sign patient out to nighttime physician for final evaluation. sp3
--- NOTE | 2025-07-07 22:44 | ER ---
Nurse's Notes [facility] Name: Jorge Antonio Age: 70 yrs Sex: Male : 1955 Arrival Date: 07/07/2025 Time: 15:59 Bed 13 Private MD: Diagnosis: Acute dyspnea on exertion, acute right leg pain, Acute viral pharyngitis, Presentation: 07/07 16:23 Chief complaint: Patient states: FELT FATIGUED AND LIGHT HEADED EARLIER TODAY WHEN dd2 VACUUMING. REPORTS O2 DROPPED TO 90% AND HEART RATE INCREASED TO 110 BPM. Coronavirus screen: At this time, the client does not indicate any symptoms associated with coronavirus-19. Ebola Screen: No symptoms or risks identified at this time. Risk Assessment: Do you want to hurt yourself or someone else? Patient reports no desire to harm self or others. Onset of symptoms was July 07, 2025. 16:23 Method Of Arrival: Ambulatory dd2 16:23 Acuity: SAMI 3 dd2 16:26 Initial Sepsis Screen: Does the patient meet any 2 criteria? No. Patient's initial dd2 sepsis screen is negative. Does the patient have a suspected source of infection? No. Patient's initial sepsis screen is negative. Triage Assessment: 16:26 General: Appears in no apparent distress. Behavior is calm, cooperative, appropriate dd2 for age. Pain: Complains of pain in right leg. Cardiovascular: Reports fatigue. Respiratory: Reports shortness of breath on exertion. Historical: - Allergies: 16:26 Aspirin; dd2 16:26 NSAIDS (Non-Steroidal Anti-Inflamma; dd2 16:26 Phgrpej-Ehw-Zcz Reductase Inhibitors; dd2 - PMHx: 16:26 COPD; DVT; High Cholesterol; PE; Hypertensive disorder; dd2 - PSHx: 16:26 HERNIA REPAIR; dd2 - Immunization history:: Adult Immunizations not up to date. - Infectious Disease History:: Denies. - Social history:: Smoking status: Patient/guardian denies using tobacco, but has a distant history of tobacco abuse. Screenin:39 [facility] ED Fall Risk Assessment (Adult) History of falling in the last 3 months, ar8 including since admission No falls in past 3 months (0 pts) Confusion or Disorientation No (0 pts) Intoxicated or Sedated No (0 pts) Impaired Gait No (0 pts) Mobility Assist Device Used No (0 pt) Altered Elimination No (0 pt) Score/Fall Risk Level 0 - 2 = Low Risk Oriented to surroundings, Maintained a safe environment. Abuse screen: Denies threats or abuse. Nutritional screening: No deficits noted. Tuberculosis screening: No symptoms or risk factors identified. Assessment: 17:39 General: Appears in no apparent distress. Behavior is calm, cooperative. Neuro: Level ar8 of Consciousness is awake, alert, obeys commands, Oriented to person, place, time, situation. Cardiovascular: Patient's skin is warm and dry. Respiratory: Reports shortness of breath Airway is patent Respiratory effort is even, unlabored, Respiratory pattern is regular, symmetrical. GI: No signs and/or symptoms were reported involving the gastrointestinal system. : No signs and/or symptoms were reported regarding the genitourinary system. Derm: No signs and/or symptoms reported regarding the dermatologic system. Musculoskeletal: Reports pain in right leg fatigue. 20:02 General: Appears in no apparent distress. Behavior is calm, cooperative. Pain: tb4 Complains of pain in medial aspect of right calf Pain does not radiate. Pain currently is 1 out of 10 on a pain scale. Quality of pain is described as dull, Pain began gradually, Is intermittent. Neuro: Level of Consciousness is awake, alert, obeys commands, Oriented to person, place, time, situation, Moves all extremities. Full function Gait is steady, Patient walk to rest room without support. Speech is normal, Facial symmetry appears normal. Cardiovascular: Patient's skin is warm and dry. Respiratory: Respiratory effort is even, unlabored, Respiratory pattern is regular, symmetrical, Sputum is. GI: No signs and/or symptoms were reported involving the gastrointestinal system. : No signs and/or symptoms were reported regarding the genitourinary system. EENT: No signs and/or symptoms were reported regarding the EENT system. 22:32 Reassessment: Patient remains stable, waiting on results. tb4 Vital Signs: 16:26 BP 151 / 71; Pulse 78; Resp 16; Temp 98.2; Pulse Ox 95% on R/A; Weight 94.8 kg; Pain dd2 3/10; 17:39 BP 164 / 69; Pulse 76; Resp 20; Temp 98.3(O); Pulse Ox 96% on R/A; ar8 18:30 BP 161 / 67; Pulse 80; Resp 19; Pulse Ox 95% on R/A; ar8 19:17 BP 159 / 83; Pulse 79; Resp 19; Pulse Ox 96% on R/A; Pain 1/10; tb4 20:42 BP 160 / 83; Pulse 77; Resp 19; Pulse Ox 97% on R/A; tb4 21:40 BP 150 / 78; Pulse 81; Resp 15; Pulse Ox 99% on R/A; Pain 0/10; tb4 22:32 BP 157 / 69; Pulse 72; Resp 18; Pulse Ox 97% on R/A; tb4 23:17 BP 146 / 81; Pulse 77; Resp 19; Pulse Ox 100% on R/A; Pain 0/10; tb4 16:26 Pain Scale: Adult dd2 19:17 Pain Scale: Adult tb4 21:40 Pain Scale: Adult tb4 23:17 Pain Scale: Adult tb4 ED Course: 16:03 Patient arrived in ED. im 16:17 Alivia Davila MD is Attending Physician. sp3 16:25 Triage completed. dd2 16:26 Arm band placed on right wrist. dd2 17:39 Louis Velez, RN is Primary Nurse. ar8 17:39 Bed in low position. Call light in reach. Side rails up X2. Provided Education on: plan ar8 of care. 18:08 EKG done, by radio/tv technician. reviewed by Alivia Davila MD. pm7 18:09 Initial lab(s) drawn, by skilled laborer, sent to lab. Inserted saline lock: 20 gauge in left pm7 antecubital area, using aseptic technique. Blood collected. Flushed with 10 mL NS. 19:03 CT Chest For PE Angio In Process Unspecified. EDMS 19:04 XRAY Chest (1 view) In Process Unspecified. EDMS 19:11 Report given to CAROLYN Edward. ar8 19:17 No provider procedures requiring assistance completed. X-ray(s) taken. Ultra sound. tb4 19:22 US Extremity Venous Unilateral Ltd In Process Unspecified. EDMS 22:30 Attending Physician role handed off by Alivia Davila MD sp4 22:30 Dom Bañuelos MD is Attending Physician. sp4 23:24 IV discontinued, intact, bleeding controlled, No redness/swelling at site. Pressure tb4 dressing applied. Administered Medications: No medications were administered Medication: 17:39 VIS not applicable for this client. ar8 Outcome: 22:43 Discharge ordered by . sp4 23:24 Discharged to home ambulatory, with family, tb4 23:24 Condition: stable 23:24 Discharge instructions given to patient, family, Instructed on discharge instructions, follow up and referral plans. Demonstrated understanding of instructions, follow-up care, 23:25 Patient left the ED. tb4 Signatures: Dispatcher [employer] EDMS Alivia Davila MD MD sp3 Dom Bañuelos MD MD sp4 Trista Pacheco DIANA RN RN dd2 Cheyanne Trinidad RN RN tb4 Louis Velez RN RN ar8 Marjan Farmer pm7
[2025-07-08 07:04] VITALS: TEMP 98.3
[2025-07-08 07:24] VITALS: BP 146/81; O2SAT 100
== END 2025-07-07 23:25 | disposition home or self-care (01) ==
LOC: ER 15:59
DX: R06.09 Other forms of dyspnea (principal); J02.9 Acute pharyngitis, unspecified; M79.604 Pain in right leg; I10 Essential (primary) hypertension; J44.9 Chronic obstructive pulmonary disease, unspecified; Z86.718 Personal history of other venous thrombosis and embolism; Z86.711 Personal history of pulmonary embolism; Z79.01 Long term (current) use of anticoagulants
CPT/HCPCS: 93005; 85025; 80048; 36415; 83735; 85610; 80076; 84484; 83880; 71275; 71045; 93971; 99284; Q9967